=== PATIENT | female | born 1970 | race Caucasian/White ===

== ENCOUNTER → 2016-07-28 | Outpatient (CLI) | payer OTHER ==
[~2016-07-28] MED LIST: AMOXIL500 MG PO; ATIVAN1 MG PO; BENADRYL ALLERG25 M5 PO; CIPRO500 MG PO; CIPROFLOXACIN500 MG PO; CYCLOBENZAPRINE10 MG PO; ELIMITE 5%60 GM T; FLAGYL500 MG PO; FLEXERIL10 MG PO; HYDROCODONE BIT1 T11 PO; KCL PO; KLONOPIN1 M1 PO; KLONOPIN2 MG PO; KWELL TP; LAMICTAL200 MG PO; MACROBID100 M1 PO; MEDROL DOSEPAK4 MG PO; MOTRIN800 MG PO; NAPROSYN500 MG PO; PREDNISONE10 MG PO; PREDNISONE20 MG PO; PREDNISONE50 MG PO; ROBITUSSIN AC 110 ML PO; TORADOL10 MG PO; TRAMADOL HCL50 MG PO; TYLENOL W/CODEI1 TA2 PO; VICODIN 5/500 505 MG PO; VICODIN 500 MG-1 TAB PO; VICODIN ES 7501 TAB PO; VISTARIL50 MG PO; XANAX0.25 MG PO; XANAX1 MG PO; XANAX2 M1 PO; ZITHROMAX Z PA250 MG PO; ZOFRAN ODT4 MG SL
== END | disposition home or self-care (01) ==
LOC: RESCLI 01:59
DX: M99.06 Segmental and somatic dysfunction of lower extremity (principal); M99.01 Segmental and somatic dysfunction of cervical region; M54.5 Low back pain; M79.1 Myalgia; M25.551 Pain in right hip; Z88.0 Allergy status to penicillin

== ENCOUNTER → 2016-08-06 | Outpatient (CLI) | payer OTHER | END | disposition home or self-care (01) | LOC: MRI 08-05 08:00 | DX: M54.42 Lumbago with sciatica, left side (principal) ==

== ENCOUNTER 2016-09-29 14:19 | Emergency (ER) | payer OTHER ==
[~2016-09-29] VITALS: Wt 59.0 kg
[2016-09-29 14:29] VITALS: BP 115/71
[2016-09-29] MEDS ORDERED: MEDROL DOSEPAK4 MG PO (15:57)
[2016-09-29] MEDS ORDERED: TYLENOL WITH CO1 TA1 PO (15:57)
[2016-09-29] MEDS ORDERED: CYCLOBENZAPRINE5 M3 PO (15:57)
== END 2016-09-29 16:03 | disposition home or self-care (01) ==
LOC: ED 14:19
DX: M54.16 Radiculopathy, lumbar region (principal); F17.200 Nicotine dependence, unspecified, uncomplicated

== ENCOUNTER → 2016-10-15 | Outpatient (CLI) | payer OTHER ==
[~2016-10-15] MED LIST changes: +CYCLOBENZAPRINE5 M3 PO; +TYLENOL WITH CO1 TA1 PO
== END | disposition home or self-care (01) ==
LOC: RESCLI 02:37
DX: M54.42 Lumbago with sciatica, left side (principal); R07.2 Precordial pain; F41.9 Anxiety disorder, unspecified; M79.7 Fibromyalgia; E78.1 Pure hyperglyceridemia; K21.9 Gastro-esophageal reflux disease without esophagitis; Z72.0 Tobacco use

== ENCOUNTER 2017-08-15 12:54 | Emergency (ER) | payer OTHER ==
[2017-08-15 13:03] VITALS: BP 122/83
== END 2017-08-15 14:35 | disposition home or self-care (01) ==
LOC: ED 12:54
DX: S93.601A Unspecified sprain of right foot, initial encounter (principal); G89.29 Other chronic pain; F17.210 Nicotine dependence, cigarettes, uncomplicated; Z90.49 Acquired absence of other specified parts of digestive tract; Z98.51 Tubal ligation status; X50.1XXA Overexertion from prolonged static or awkward postures, initial encounter; Y93.89 Activity, other specified; Y92.89 Other specified places as the place of occurrence of the external cause; Y99.9 Unspecified external cause status

== ENCOUNTER 2017-08-22 18:05 | Emergency (ER) | payer OTHER ==
[~2017-08-22] VITALS: Ht 142.2 cm; Wt 63.5 kg
[2017-08-22 18:08] VITALS: BP 109/63
[2017-08-22] MEDS ORDERED: NAPROSYN500 MG PO (19:30)
== END 2017-08-22 19:31 | disposition home or self-care (01) ==
LOC: ED 18:05
DX: G89.29 Other chronic pain (principal); M25.552 Pain in left hip; M79.7 Fibromyalgia; Z90.49 Acquired absence of other specified parts of digestive tract; Z98.51 Tubal ligation status

== ENCOUNTER 2017-09-19 15:19 | Emergency (ER) | payer OTHER ==
[~2017-09-19] VITALS: Ht 152.4 cm; Wt 68.0 kg
[2017-09-19 15:20] VITALS: BP 163/76
[2017-09-19] MEDS ORDERED: LAMICTAL200 MG PO (15:28)
[2017-09-19] MEDS ORDERED: LEXAPRO20 MG PO (15:28)
[2017-09-19] MEDS ORDERED: NEURONTIN600 MG PO (15:29)
[2017-09-19] MEDS ORDERED: SEROQUEL100 MG PO (15:29)
[2017-09-19 15:43] LABS: BASO # 0.1 10*3/uL (0.0-0.1); BASO % 0.4 % (0.0-1.0); EOS % 0.1 % (1.0-4.0); HEMATOCRIT 40.9 % (37.0-47.0); HEMOGLOBIN 14.1 g/dl (12.0-16.0); LYMPH # 2.9 10*3/uL (1.3-4.4); LYMPH % 22.7 % (27.0-41.0); MEAN CELL VOLUME 85.6 fl (81.0-99.0); MEAN CORPUSCULAR HGB 29.5 pg (27.0-31.0); MEAN CORPUSCULAR HGB CONC 34.5 g/dl (33.0-37.0); MEAN PLATELET VOLUME 8.5 fl (9.6-12.3); MONO # 0.8 10*3/uL (0.1-1.0); MONO % 6.1 % (3.0-9.0); NEUT # 8.9 10*3/uL (2.3-7.9); NEUT % 70.4 % (47.0-73.0); PLATELET COUNT AUTOMATED 393 10*3/uL (130-400); RED BLOOD COUNT 4.78 10*6/uL (4.10-5.10); WHITE BLOOD COUNT 12.6 10*3/uL (4.8-10.8)
[2017-09-19 15:57] LABS: ALBUMIN 4.2 gm/dl (3.1-4.5); ALKALINE PHOSPHATASE 96 U/L (45-117); BUN 14 mg/dl (7-24); CHLORIDE 104 mmol/L (98-107); CREATININE 1.03 mg/dL (0.55-1.02); POTASSIUM 3.6 mmol/L (3.5-5.1); SGOT/AST 20 IU/L (3-35); SGPT/ALT 18 U/L (12-78); SODIUM 136 mmol/L (136-145); TOTAL PROTEIN 8.1 gm/dL (6.4-8.2)
[2017-09-19 16:00] LABS: ACETAMINOPHEN (TYLENOL) < 2.0 ug/ml (10-30); ETHYL ALCOHOL < 3.0 mg/dl (<3)
[2017-09-19 16:40] LABS: BILIRUBIN NEGATIVE (NEGATIVE); BLOOD 1+ (NEGATIVE); CLARITY SL CLOUDY (CLEAR); COLOR YELLOW (YELLOW); GLUCOSE NEGATIVE (NEGATIVE); KETONE NEGATIVE (NEGATIVE); LEUKO ESTERASE NEGATIVE (NEGATIVE); NITRITE NEGATIVE (NEGATIVE); PH 6.5 (5.0-9.0); UROBILINOGEN 0.2 E.U./dl (0.2-1.0)
[2017-09-19 16:48] LABS: BACTERIA 1+; MUCOUS 3+
[2017-09-19 16:50] LABS: URINE AMPHETAMINES < 1000 (1000ng/ml); URINE BARBITURATES < 200 (200ng/ml); URINE BENZODIAZEPINES < 200 (200ng/ml); URINE CANNABINOIDS (THC) < 50 (50ng/ml); URINE COCAINE < 300 (300ng/ml); URINE METHADONE < 300 (300ng/ml); URINE OPIATES < 300 (300ng/ml)
[2017-09-19 16:53] LABS: URINE PHENCYCLIDINE < 25 (25ng/ml)
== END 2017-09-19 17:29 ==
LOC: ED 15:19
PROVIDERS: Nurse Practitioner Family
DX: F25.0 Schizoaffective disorder, bipolar type (principal); Z79.899 Other long term (current) drug therapy

== ENCOUNTER 2018-11-03 18:53 | Emergency (ER) | payer OTHER ==
[~2018-11-03] VITALS: Ht 157.4 cm; Wt 59.0 kg
[~2018-11-03 18:53] MED LIST changes: +LEXAPRO20 MG PO; +NEURONTIN600 MG PO; +SEROQUEL100 MG PO
[2018-11-03 18:55] VITALS: BP 117/82
[2018-11-03] MEDS ORDERED: CLONAZEPAM0.5 M2 PO (18:56)
[2018-11-03] MEDS ORDERED: FLUOXETINE HYDR20 M1 PO (18:57)
[2018-11-03] MEDS ORDERED: PREDNISONE20 M1 PO (18:58)
== END 2018-11-03 19:07 | disposition home or self-care (01) ==
LOC: ED 18:53
DX: L25.9 Unspecified contact dermatitis, unspecified cause (principal); F17.200 Nicotine dependence, unspecified, uncomplicated; Z79.899 Other long term (current) drug therapy; Z90.49 Acquired absence of other specified parts of digestive tract

== ENCOUNTER 2018-12-20 18:50 | Inpatient (IN) | payer OTHER ==
[~2018-12-20] VITALS: Ht 152.4 cm; Wt 70.8 kg
--- NOTE | ~2018-12-20 | EKG ---
[place], [place] ELECTROCARDIOGRAM REPORT NAME: NIRMAL STEEN UNIT #: [id number] ROOM: 515 DOCTOR: ROSY DRAFT REPORT BIRTHDATE: [birth year] [facility] Test Date: 2018-12-21 Test Time: 06:26:07 Pat Name: NIRMAL STEEN Department: Room: [facility] Gender: F Calciner Feeder: Alejandra Jimenez : 1970 Requested By: NIRMAL CISSE Order Number: [id number] Reading MD: Raphael Klein Measurements Intervals [place] Rate: 59 P: 16 MA: 142 QRS: 21 QRSD: 82 T: 0 QT: 463 QTc: 459 Interpretive Statements Sinus rhythm Borderline T abnormalities, inferior leads Baseline wander in lead(s) V1 Electronically Signed On 12-22-2018 8:15:55 PDT by Raphael Klein CM:EKGRPT:ELECTROCARDIOGRAM REPORT [id number] NIRMAL BARAHONA DRAFT REPORT NIRMAL CISSE DO
--- NOTE | ~2018-12-20 | EKG ---
[place], [place] ELECTROCARDIOGRAM REPORT NAME: NIRMAL STEEN UNIT #: [id number] ROOM: 515 DOCTOR: ROSY DRAFT REPORT BIRTHDATE: [birth year] [facility] Test Date: 2018-12-21 Test Time: 03:24:33 Pat Name: NIRMAL STEEN Department: Room: [facility] Gender: F Configuration Specialist: Cheng Lombardi : 1970 Requested By: NIRMAL CISSE Order Number: [id number] Reading MD: Raphael Klein Measurements Intervals [place] Rate: 65 P: 30 CT: 141 QRS: 28 QRSD: 82 T: 6 QT: 434 QTc: 452 Interpretive Statements Sinus rhythm Baseline wander in lead(s) V1 Electronically Signed On 12-22-2018 8:15:05 PDT by Raphael Klein CM:EKGRPT:ELECTROCARDIOGRAM REPORT [id number] NIRMAL BARAHONA DRAFT REPORT NIRMAL CISSE DO
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
--- NOTE | ~2018-12-20 | EKG ---
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
[~2018-12-20 18:50] MED LIST changes: +CLONAZEPAM0.5 M2 PO; +FLUOXETINE HYDR20 M1 PO; +PREDNISONE20 M1 PO
[2018-12-20 18:54] VITALS: BP 136/74
[2018-12-20 20:20] LABS: BASO # 0.1 10*3/uL (0.0-0.1); BASO % 0.6 % (0.0-1.0); EOS # 0.3 10*3/uL (0.0-0.4); EOS % 3.5 % (1.0-4.0); HEMATOCRIT 38.3 % (37.0-47.0); HEMOGLOBIN 12.7 g/dl (12.0-16.0); LYMPH # 3.9 10*3/uL (1.3-4.4); LYMPH % 41.8 % (27.0-41.0); MEAN CORPUSCULAR HGB 30.8 pg (27.0-31.0); MEAN CORPUSCULAR HGB CONC 33.2 g/dl (33.0-37.0); MEAN PLATELET VOLUME 8.3 fl (9.6-12.3); MONO # 0.4 10*3/uL (0.1-1.0); MONO % 4.6 % (3.0-9.0); NEUT # 4.6 10*3/uL (2.3-7.9); NEUT % 49.3 % (47.0-73.0); PLATELET COUNT AUTOMATED 313 10*3/uL (130-400); RED BLOOD COUNT 4.12 10*6/uL (4.10-5.10); RED CELL DISTRI WIDTH 14.6 % (0-14.5); WHITE BLOOD COUNT 9.3 10*3/uL (4.8-10.8)
[2018-12-20 20:36] LABS: ALBUMIN 3.4 gm/dl (3.1-4.5); ALKALINE PHOSPHATASE 106 U/L (45-117); BUN 12 mg/dl (7-24); CHLORIDE 109 mmol/L (98-107); CREATININE 0.76 mg/dL (0.55-1.02); POTASSIUM 3.5 mmol/L (3.5-5.1); SGOT/AST 15 IU/L (3-35); SGPT/ALT 18 U/L (12-78); SODIUM 142 mmol/L (136-145); TOTAL PROTEIN 7.2 gm/dL (6.4-8.2)
[2018-12-20 20:51] VITALS: BP 107/73
--- NOTE | 2018-12-20 20:51 | NUR ---
PT STATES SHE IS UNABLE TO VOID PER PATIENT. FEDERICO BETANCOURT RN.
--- NOTE | 2018-12-20 22:53 | NUR ---
PT STATES SHE STILL DOES NOT HAVE TO VOID. FEDERICO BETANCOURT RN.
[2018-12-20 22:54] VITALS: BP 100/50
[2018-12-20 23:18] LABS: BILIRUBIN NEGATIVE (NEGATIVE); BLOOD NEGATIVE (NEGATIVE); CLARITY CLEAR (CLEAR); COLOR YELLOW (YELLOW); GLUCOSE NEGATIVE (NEGATIVE); KETONE NEGATIVE (NEGATIVE); LEUKO ESTERASE NEGATIVE (NEGATIVE); NITRITE NEGATIVE (NEGATIVE); UROBILINOGEN 0.2 E.U./dl (0.2-1.0)
[2018-12-20 23:24] LABS: BACTERIA 2+; RBC 0-2 rbc/hpf (0-2)
[2018-12-21] VITALS (7 sets, daily range): BP systolic 98–132; BP diastolic 59–81
[2018-12-21 03:15] LABS: INTERNATIONAL NORM RATIO 0.9 (2.0-3.5)
--- NOTE | 2018-12-21 04:15 | NUR ---
Time: 414 A 48 year old FEMALE admitted to 5E under services of ORACIO MAGALLANES DO. Pt. arrived via wheel chair from ER. Chief complaint: CHEST PAIN. ARLEN FUENTES
--- NOTE | 2018-12-21 04:48 | NUR ---
CALLED DR. DARRIN DEL CID PT MED WAS VERIFIED. PER PT ONLY TAKE TWO MEDICATION. DENIES TAKING LAMICTAL. WE WILL CALL PHARMACY IN AM.
[2018-12-21] MEDS ORDERED: LAMICTAL200 MG PO (05:14)
--- NOTE | 2018-12-21 05:17 | NUR ---
CALLED DR. CLIFFORD AWARE PT STATES SHE IS TAKING LAMICTAL ALSO.
--- NOTE | 2018-12-21 05:43 | NUR ---
PT ANXIOUS LYING IN BEDF. RESP-EASY AND REGULAR. MEDICATED WITH XANAX PO PER PRN ORDER SEE EMAR. CALL LIGHT IN REACH.
[2018-12-21 06:02] LABS: URINE AMPHETAMINES < 1000 (1000ng/ml); URINE BARBITURATES < 200 (200ng/ml); URINE BENZODIAZEPINES > 200 (200ng/ml); URINE CANNABINOIDS (THC) < 50 (50ng/ml); URINE COCAINE > 300 (300ng/ml); URINE METHADONE < 300 (300ng/ml); URINE OPIATES < 300 (300ng/ml)
[2018-12-21 06:08] LABS: URINE PHENCYCLIDINE < 25 (25ng/ml)
[2018-12-21 06:10] LABS: BASO % 0.5 % (0.0-1.0); EOS # 0.2 10*3/uL (0.0-0.4); EOS % 2.8 % (1.0-4.0); HEMATOCRIT 36.1 % (37.0-47.0); HEMOGLOBIN 11.8 g/dl (12.0-16.0); LYMPH # 3.4 10*3/uL (1.3-4.4); LYMPH % 42.2 % (27.0-41.0); MEAN CORPUSCULAR HGB 30.4 pg (27.0-31.0); MEAN CORPUSCULAR HGB CONC 32.7 g/dl (33.0-37.0); MEAN PLATELET VOLUME 8.6 fl (9.6-12.3); MONO # 0.5 10*3/uL (0.1-1.0); NEUT # 3.8 10*3/uL (2.3-7.9); NEUT % 48.2 % (47.0-73.0); PLATELET COUNT AUTOMATED 270 10*3/uL (130-400); RED BLOOD COUNT 3.88 10*6/uL (4.10-5.10); RED CELL DISTRI WIDTH 14.5 % (0-14.5)
[2018-12-21 06:28] LABS: BUN 13 mg/dl (7-24); CHLORIDE 108 mmol/L (98-107); CHOLESTEROL 187 mg/dL (<200); CREATININE 0.78 mg/dL (0.55-1.02); PHOSPHOROUS 3.5 mg/dL (2.5-4.9); POTASSIUM 3.5 mmol/L (3.5-5.1); SODIUM 140 mmol/L (136-145); TRIGLYCERIDES 320 mg/dl (<150); VLDL CHOLESTEROL 64 mg/dL (6-40)
[2018-12-21 06:38] LABS: HDL CHOLESTEROL 43 mg/dl (40-60); LDL CHOLESTEROL 80 mg/dL (9-159)
--- NOTE | 2018-12-21 07:13 | NUR ---
CALLED [facility] FOR CONSULT FOR DR. JOHNSON. THEY WILL NOTIFY HIM.
[2018-12-21 08:41] LABS: VITAMIN D, 25-HYDROXY 15.4 ng/mL (30-100)
[2018-12-22] VITALS: BP 107/62
[2018-12-22 08:00] VITALS: BP 102/56
[2018-12-22] MEDS ORDERED: LAMICTAL200 MG PO (08:21)
[2018-12-22] MEDS ORDERED: ZOFRAN4 MG PO (08:21)
[2018-12-22] MEDS ORDERED: PHARMASSURE V500 MCG PO (08:22)
[2018-12-22] MEDS ORDERED: CALCIUM 600 +1 EA11 PO (08:22)
--- NOTE | 2018-12-22 09:15 | NUR ---
PATIENT DISCHARGED TO HOME WITH BELONGINGS.
--- NOTE | 2018-12-22 13:17 | NUR ---
PT LEFT BEFORE BEING SEEN BY CASE MANAGEMENT.
== END 2018-12-22 09:15 | disposition home or self-care (01) | DRG 313 ==
LOC: ED 18:50 → EDHOLD 12-21 03:25 → 5E 12-21 03:25
PROVIDERS: Emergency Medicine; Student in an Organized Health Care Education/Training Program; ADMIT Internal Medicine
DX: R07.89 Other chest pain (principal); F33.9 Major depressive disorder, recurrent, unspecified; R56.9 Unspecified convulsions; F10.920 Alcohol use, unspecified with intoxication, uncomplicated; E87.8 Other disorders of electrolyte and fluid balance, not elsewhere classified; D72.820 Lymphocytosis (symptomatic); M54.9 Dorsalgia, unspecified; F41.1 Generalized anxiety disorder; M79.10 Myalgia, unspecified site; M54.10 Radiculopathy, site unspecified; M25.552 Pain in left hip; I10 Essential (primary) hypertension; F40.11 Social phobia, generalized; E53.8 Deficiency of other specified B group vitamins; M54.32 Sciatica, left side; F25.0 Schizoaffective disorder, bipolar type; E55.9 Vitamin D deficiency, unspecified; F12.90 Cannabis use, unspecified, uncomplicated; G89.29 Other chronic pain; E78.00 Pure hypercholesterolemia, unspecified; F17.210 Nicotine dependence, cigarettes, uncomplicated; Z71.6 Tobacco abuse counseling; Z59.0 Homelessness; Z90.49 Acquired absence of other specified parts of digestive tract; Z98.51 Tubal ligation status; Z82.49 Family history of ischemic heart disease and other diseases of the circulatory system; Z82.0 Family history of epilepsy and other diseases of the nervous system; Z81.3 Family history of other psychoactive substance abuse and dependence; Z91.14 Patient's other noncompliance with medication regimen

== ENCOUNTER 2019-01-25 18:17 | Emergency (ER) | payer OTHER ==
[~2019-01-25] VITALS: Ht 144.7 cm; Wt 67.1 kg
[~2019-01-25 18:17] MED LIST changes: +CALCIUM 600 +1 EA11 PO; +PHARMASSURE V500 MCG PO; +ZOFRAN4 MG PO
[2019-01-25 18:18] VITALS: BP 110/68
[2019-01-25 19:07] LABS: BILIRUBIN 1+ (NEGATIVE); BLOOD NEGATIVE (NEGATIVE); CLARITY SL CLOUDY (CLEAR); COLOR RED (YELLOW); GLUCOSE 1+ (NEGATIVE); KETONE TRACE (NEGATIVE); LEUKO ESTERASE 2+ (NEGATIVE); NITRITE POSITIVE (NEGATIVE); SPECIFIC GRAVITY 1.015 (1.005-1.030); UROBILINOGEN >= 8.0 E.U./dl (0.2-1.0)
[2019-01-25 19:42] LABS: BACTERIA 2+; WBC 16-20 wbc/hpf (0-5)
[2019-01-25] MEDS ORDERED: PYRIDIUM200 M1 PO (19:56)
[2019-01-25] MEDS ORDERED: SEPTDS PO (19:56)
== END 2019-01-25 19:57 | disposition home or self-care (01) ==
LOC: ED 18:17
PROVIDERS: Physician Assistant
DX: N39.0 Urinary tract infection, site not specified (principal); B37.3 Candidiasis of vulva and vagina; F17.200 Nicotine dependence, unspecified, uncomplicated; Z79.899 Other long term (current) drug therapy; Z90.49 Acquired absence of other specified parts of digestive tract; Z98.51 Tubal ligation status

== ENCOUNTER 2019-02-07 18:02 | Emergency (ER) | payer OTHER ==
[~2019-02-07] VITALS: Ht 144.7 cm; Wt 67.1 kg
[~2019-02-07 18:02] MED LIST changes: +PYRIDIUM200 M1 PO; +SEPTDS PO
[2019-02-07 18:04] VITALS: BP 115/69
== END 2019-02-07 20:30 | disposition home or self-care (01) ==
LOC: ED 18:02
DX: M25.551 Pain in right hip (principal); Z53.21 Procedure and treatment not carried out due to patient leaving prior to being seen by health care provider

== ENCOUNTER 2019-03-13 22:32 | Emergency (ER) | payer OTHER ==
[~2019-03-13] VITALS: Ht 157.4 cm; Wt 67.6 kg
[2019-03-13 22:34] VITALS: BP 127/80
[2019-03-13] MEDS ORDERED: CLONAZEPAM0.5 M2 PO (22:43)
[2019-03-13 23:23] LABS: BILIRUBIN NEGATIVE (NEGATIVE); BLOOD TRACE-INTACT (NEGATIVE); CLARITY CLEAR (CLEAR); COLOR YELLOW (YELLOW); GLUCOSE NEGATIVE (NEGATIVE); KETONE NEGATIVE (NEGATIVE); LEUKO ESTERASE NEGATIVE (NEGATIVE); NITRITE NEGATIVE (NEGATIVE); PH 7.5 (5.0-9.0); UROBILINOGEN 0.2 E.U./dl (0.2-1.0)
[2019-03-13 23:30] LABS: BACTERIA TRACE; EPITHELIAL CELLS 0-2
== END 2019-03-14 01:48 | disposition home or self-care (01) ==
LOC: ED 22:32
PROVIDERS: Emergency Medicine
DX: M13.852 Other specified arthritis, left hip (principal); M13.851 Other specified arthritis, right hip; M47.896 Other spondylosis, lumbar region; G40.909 Epilepsy, unspecified, not intractable, without status epilepticus; E78.00 Pure hypercholesterolemia, unspecified; I10 Essential (primary) hypertension; F17.200 Nicotine dependence, unspecified, uncomplicated

== ENCOUNTER 2019-03-25 16:48 | Emergency (ER) | payer OTHER ==
[~2019-03-25] VITALS: Ht 162.5 cm; Wt 63.5 kg
[2019-03-25 16:49] VITALS: BP 159/95
[2019-03-25] MEDS ORDERED: PROVENTIL HFA6.7 GM INH (19:12)
[2019-03-25] MEDS ORDERED: TESSALON PERLE100 M1 PO (19:12)
== END 2019-03-25 19:30 | disposition home or self-care (01) ==
LOC: ED 16:48
DX: J20.9 Acute bronchitis, unspecified (principal); J04.0 Acute laryngitis; G89.29 Other chronic pain; F17.200 Nicotine dependence, unspecified, uncomplicated; Z79.899 Other long term (current) drug therapy; Z90.49 Acquired absence of other specified parts of digestive tract

== ENCOUNTER → 2019-04-22 | Outpatient (CLI) | payer OTHER ==
[~2019-04-22] MED LIST changes: +PROVENTIL HFA6.7 GM INH; +TESSALON PERLE100 M1 PO
[2019-04-22 14:33] LABS: VITAMIN D, 25-HYDROXY 10.3 ng/mL (30-100)
== END | disposition home or self-care (01) ==
LOC: LAB 13:15 → RAD 13:15
PROVIDERS: Nurse Practitioner Family
DX: E83.51 Hypocalcemia (principal); F41.9 Anxiety disorder, unspecified; E78.1 Pure hyperglyceridemia; G40.909 Epilepsy, unspecified, not intractable, without status epilepticus; F17.210 Nicotine dependence, cigarettes, uncomplicated

== ENCOUNTER → 2019-05-02 | Outpatient (CLI) | payer OTHER | END | disposition home or self-care (01) | LOC: US 06:30 | DX: Z12.4 Encounter for screening for malignant neoplasm of cervix (principal); G40.909 Epilepsy, unspecified, not intractable, without status epilepticus; K13.0 Diseases of lips; K21.9 Gastro-esophageal reflux disease without esophagitis; F17.210 Nicotine dependence, cigarettes, uncomplicated; R68.81 Early satiety; R63.4 Abnormal weight loss ==

== ENCOUNTER → 2019-05-12 | Outpatient (CLI) | payer OTHER | END | disposition home or self-care (01) | LOC: CT 05-06 14:00 | DX: K57.90 Diverticulosis of intestine, part unspecified, without perforation or abscess without bleeding (principal); K76.0 Fatty (change of) liver, not elsewhere classified; N85.2 Hypertrophy of uterus; R63.4 Abnormal weight loss; F17.200 Nicotine dependence, unspecified, uncomplicated ==

== ENCOUNTER → 2019-05-23 | Outpatient (CLI) | payer OTHER | END | disposition home or self-care (01) | LOC: MRI 13:43 | DX: N83.02 Follicular cyst of left ovary (principal); N83.01 Follicular cyst of right ovary; N85.9 Noninflammatory disorder of uterus, unspecified; N85.2 Hypertrophy of uterus; M47.816 Spondylosis without myelopathy or radiculopathy, lumbar region; F41.9 Anxiety disorder, unspecified; F10.11 Alcohol abuse, in remission; R93.5 Abnormal findings on diagnostic imaging of other abdominal regions, including retroperitoneum; R63.4 Abnormal weight loss ==

== ENCOUNTER 2019-07-01 17:50 | Emergency (ER) | payer OTHER ==
[~2019-07-01] VITALS: Ht 144.7 cm; Wt 81.6 kg
[2019-07-01 18:33] LABS: BILIRUBIN NEGATIVE (NEGATIVE); BLOOD TRACE-INTACT (NEGATIVE); CLARITY CLOUDY (CLEAR); COLOR YELLOW (YELLOW); GLUCOSE NEGATIVE (NEGATIVE); KETONE TRACE (NEGATIVE); LEUKO ESTERASE 1+ (NEGATIVE); NITRITE POSITIVE (NEGATIVE); PH 7.5 (5.0-9.0); SPECIFIC GRAVITY 1.005 (1.005-1.030); UROBILINOGEN 0.2 E.U./dl (0.2-1.0)
[2019-07-01 18:38] LABS: BACTERIA 4+; RBC 0-2 rbc/hpf (0-2); WBC 31-40 wbc/hpf (0-5)
[2019-07-01 18:50] VITALS: BP 119/68
[2019-07-01 18:54] LABS: BASO # 0.1 10*3/uL (0.0-0.1); EOS # 0.1 10*3/uL (0.0-0.4); EOS % 1.3 % (1.0-4.0); HEMATOCRIT 40.2 % (37.0-47.0); HEMOGLOBIN 13.1 g/dl (12.0-16.0); LYMPH # 2.8 10*3/uL (1.3-4.4); LYMPH % 35.7 % (27.0-41.0); MEAN CELL VOLUME 92.2 fl (81.0-99.0); MEAN CORPUSCULAR HGB CONC 32.6 g/dl (33.0-37.0); MEAN PLATELET VOLUME 8.8 fl (9.6-12.3); MONO # 0.6 10*3/uL (0.1-1.0); MONO % 7.4 % (3.0-9.0); NEUT # 4.3 10*3/uL (2.3-7.9); NEUT % 54.2 % (47.0-73.0); PLATELET COUNT AUTOMATED 259 10*3/uL (130-400); RED BLOOD COUNT 4.36 10*6/uL (4.10-5.10); RED CELL DISTRI WIDTH 13.2 % (0-14.5)
[2019-07-01 19:09] LABS: ALBUMIN 3.2 gm/dl (3.1-4.5); ALKALINE PHOSPHATASE 81 U/L (45-117); BUN 10 mg/dl (7-24); CHLORIDE 109 mmol/L (98-107); CREATININE 1.06 mg/dL (0.55-1.02); LIPASE 77 U/L (73-393); POTASSIUM 3.2 mmol/L (3.5-5.1); SGOT/AST 16 IU/L (3-35); SGPT/ALT 18 U/L (12-78); SODIUM 141 mmol/L (136-145); TOTAL PROTEIN 7.1 gm/dL (6.4-8.2)
[2019-07-01] MEDS ORDERED: MACROBID100 M1 PO (20:45)
[2019-07-01] MEDS ORDERED: Motrin,Rufen800 MG PO (20:45)
== END 2019-07-01 21:02 | disposition home or self-care (01) ==
LOC: ED 17:50
PROVIDERS: Emergency Medicine
DX: N39.0 Urinary tract infection, site not specified (principal); D25.9 Leiomyoma of uterus, unspecified; F41.9 Anxiety disorder, unspecified; R56.9 Unspecified convulsions; F32.9 Major depressive disorder, single episode, unspecified; F17.200 Nicotine dependence, unspecified, uncomplicated; Z79.899 Other long term (current) drug therapy; Z90.49 Acquired absence of other specified parts of digestive tract

== ENCOUNTER 2019-11-11 17:35 | Inpatient (IN) | payer OTHER ==
[~2019-11-11] VITALS: Ht 157.5 cm; Wt 75.5 kg
[~2019-11-11 17:35] MED LIST changes: +Motrin,Rufen800 MG PO
[2019-11-11 18:15] LABS: BASO # 0.1 10*3/uL (0.0-0.1); EOS # 0.1 10*3/uL (0.0-0.4); EOS % 1.8 % (1.0-4.0); HEMATOCRIT 44.9 % (37.0-47.0); LYMPH # 2.9 10*3/uL (1.3-4.4); MEAN CELL VOLUME 89.4 fl (81.0-99.0); MEAN CORPUSCULAR HGB 29.3 pg (27.0-31.0); MEAN CORPUSCULAR HGB CONC 32.7 g/dl (33.0-37.0); MEAN PLATELET VOLUME 8.3 fl (9.6-12.3); MONO # 0.3 10*3/uL (0.1-1.0); NEUT # 3.4 10*3/uL (2.3-7.9); NEUT % 49.8 % (47.0-73.0); PLATELET COUNT AUTOMATED 303 10*3/uL (130-400); RED BLOOD COUNT 5.02 10*6/uL (4.10-5.10); RED CELL DISTRI WIDTH 14.8 % (0-14.5); WHITE BLOOD COUNT 6.8 10*3/uL (4.8-10.8)
[2019-11-11 18:32] LABS: ALBUMIN 3.5 gm/dl (3.1-4.5); ALKALINE PHOSPHATASE 124 U/L (45-117); BUN 8 mg/dl (7-24); CHLORIDE 109 mmol/L (98-107); CREATININE 0.77 mg/dL (0.55-1.02); POTASSIUM 3.4 mmol/L (3.5-5.1); SGOT/AST 35 IU/L (3-35); SGPT/ALT 29 U/L (12-78); SODIUM 144 mmol/L (136-145)
[2019-11-11 18:35] LABS: TROPONIN I < 0.015 ng/ml (<0.045)
[2019-11-11 18:38] LABS: THYROID STIM HORMONE (HS) 0.167 uIU/ml (0.358-4.75)
[2019-11-11 19:00] VITALS: BP 130/68
[2019-11-11 19:03] LABS: BILIRUBIN NEGATIVE (NEGATIVE); BLOOD NEGATIVE (NEGATIVE); CLARITY CLEAR (CLEAR); COLOR YELLOW (YELLOW); GLUCOSE NEGATIVE (NEGATIVE); KETONE NEGATIVE (NEGATIVE); NITRITE POSITIVE (NEGATIVE); PH 6.5 (5.0-9.0); SPECIFIC GRAVITY 1.005 (1.005-1.030); UROBILINOGEN 0.2 E.U./dl (0.2-1.0)
[2019-11-11 19:04] LABS: BACTERIA 4+; LEUKO ESTERASE NEGATIVE (NEGATIVE); RBC 0-2 rbc/hpf (0-2); URINE AMPHETAMINES < 1000 (1000ng/ml); URINE BARBITURATES < 200 (200ng/ml); URINE BENZODIAZEPINES > 200 (200ng/ml); URINE CANNABINOIDS (THC) < 50 (50ng/ml); URINE COCAINE < 300 (300ng/ml); URINE METHADONE < 300 (300ng/ml); URINE OPIATES < 300 (300ng/ml)
[2019-11-11 19:06] LABS: URINE PHENCYCLIDINE < 25 (25ng/ml)
[2019-11-11 20:26] VITALS: BP 132/78
[2019-11-11 21:10] VITALS: BP 138/65
[2019-11-11 21:47] VITALS: BP 132/81
[2019-11-12] VITALS: BP 122/88
[2019-11-12] MEDS ORDERED: DULOXETINE HCL20 MG PO (03:12)
[2019-11-12 04:02] VITALS: BP 109/72
[2019-11-12 06:08] LABS: ALBUMIN 2.9 gm/dl (3.1-4.5); BUN 10 mg/dl (7-24); CHLORIDE 106 mmol/L (98-107); CREATININE 0.75 mg/dL (0.55-1.02); POTASSIUM 3.2 mmol/L (3.5-5.1); SGOT/AST 28 IU/L (3-35); SGPT/ALT 25 U/L (12-78); SODIUM 141 mmol/L (136-145); TOTAL PROTEIN 6.8 gm/dL (6.4-8.2)
[2019-11-12 06:09] LABS: ALKALINE PHOSPHATASE 104 U/L (45-117); FREE T4 0.78 ng/dl (0.76-1.46)
[2019-11-12 06:11] LABS: BASO % 0.6 % (0.0-1.0); EOS # 0.1 10*3/uL (0.0-0.4); EOS % 2.2 % (1.0-4.0); HEMATOCRIT 39.6 % (37.0-47.0); LYMPH % 47.8 % (27.0-41.0); MEAN CELL VOLUME 90.8 fl (81.0-99.0); MEAN CORPUSCULAR HGB 28.9 pg (27.0-31.0); MEAN CORPUSCULAR HGB CONC 31.8 g/dl (33.0-37.0); MEAN PLATELET VOLUME 8.6 fl (9.6-12.3); MONO # 0.4 10*3/uL (0.1-1.0); MONO % 6.7 % (3.0-9.0); NEUT # 2.7 10*3/uL (2.3-7.9); NEUT % 42.5 % (47.0-73.0); PLATELET COUNT AUTOMATED 265 10*3/uL (130-400); RED BLOOD COUNT 4.36 10*6/uL (4.10-5.10); RED CELL DISTRI WIDTH 14.9 % (0-14.5); WHITE BLOOD COUNT 6.3 10*3/uL (4.8-10.8)
[2019-11-12 08:00] VITALS: BP 112/70
[2019-11-12 12:00] VITALS: BP 141/79
[2019-11-12 16:00] VITALS: BP 136/70
[2019-11-12 20:00] VITALS: BP 107/77
[2019-11-13] VITALS: BP 115/82
[2019-11-13 04:00] VITALS: BP 127/95
== END 2019-11-13 05:50 | disposition left against medical advice (07) | DRG 770 ==
LOC: ED 17:35 → EDHOLD 19:52 → ICCU 19:52
PROVIDERS: Internal Medicine; Student in an Organized Health Care Education/Training Program; ADMIT Emergency Medicine
DX: F10.229 Alcohol dependence with intoxication, unspecified (principal); F41.9 Anxiety disorder, unspecified; E87.6 Hypokalemia; F12.90 Cannabis use, unspecified, uncomplicated; F32.9 Major depressive disorder, single episode, unspecified; E87.8 Other disorders of electrolyte and fluid balance, not elsewhere classified; R73.9 Hyperglycemia, unspecified; Z53.29 Procedure and treatment not carried out because of patient's decision for other reasons; R74.8 Abnormal levels of other serum enzymes; F25.0 Schizoaffective disorder, bipolar type; G40.909 Epilepsy, unspecified, not intractable, without status epilepticus; F17.210 Nicotine dependence, cigarettes, uncomplicated; E55.9 Vitamin D deficiency, unspecified; Z59.0 Homelessness; Z90.49 Acquired absence of other specified parts of digestive tract; Z98.51 Tubal ligation status; Z82.0 Family history of epilepsy and other diseases of the nervous system; Z81.3 Family history of other psychoactive substance abuse and dependence; Z79.899 Other long term (current) drug therapy; Z71.6 Tobacco abuse counseling; Z82.49 Family history of ischemic heart disease and other diseases of the circulatory system; F10.239 Alcohol dependence with withdrawal, unspecified

== ENCOUNTER → 2020-01-12 | Outpatient (CLI) | payer OTHER ==
[~2020-01-12] MED LIST changes: +DULOXETINE HCL20 MG PO
== END | disposition home or self-care (01) ==
LOC: COVID19 01:19
PROVIDERS: ATTEND Nurse Practitioner Family
DX: Z20.828 Contact with and (suspected) exposure to other viral communicable diseases (principal)

== ENCOUNTER 2020-01-17 23:14 | Emergency (ER) | payer OTHER ==
[~2020-01-17] VITALS: Ht 144.7 cm; Wt 68.0 kg
[2020-01-17 23:17] VITALS: BP 125/79
[2020-01-18 01:19] LABS: BILIRUBIN Negative (Negative); BLOOD Negative (Negative); CLARITY Clear (Clear); COLOR Yellow (Yellow); GLUCOSE Negative (Negative); KETONE Negative (Negative); LEUKO ESTERASE Negative (Negative); NITRITE Negative (Negative); SPECIFIC GRAVITY <= 1.005 (1.001-1.030); UROBILINOGEN 0.2 E.U./dl (0.0-1.0)
[2020-01-18 01:35] LABS: RBC 0-2 rbc/hpf (0-2); WBC 0-2 wbc/hpf (0-5)
== END 2020-01-18 02:23 | disposition home or self-care (01) ==
LOC: ED 23:14
PROVIDERS: Emergency Medicine
DX: T74.21XA Adult sexual abuse, confirmed, initial encounter (principal); F41.9 Anxiety disorder, unspecified; F32.9 Major depressive disorder, single episode, unspecified; Z79.899 Other long term (current) drug therapy; Y92.89 Other specified places as the place of occurrence of the external cause

== ENCOUNTER → 2020-02-01 | Outpatient (CLI) | payer OTHER ==
[~2020-02-01] MED LIST changes: +AUGMENTIN 875875 MG PO; +CARAFATE1 G1 PO; +CHLORDIAZEPOXID25 M1 PO; +CYMBALTA20 M1 PO; +DICYCLOMINE HCL10 MG PO; +FAMOTIDINE20 M1 PO; +HYDROXYZINE PAM50 MG PO; +KLONOPIN0.5 MG PO; +PRILOSEC20 M1 PO; +VITAMIN B-121000 MC1 SL
== END | disposition home or self-care (01) ==
LOC: US 01-16 13:00
PROVIDERS: ATTEND Obstetrics & Gynecology
DX: R10.2 Pelvic and perineal pain (principal); R93.89 Abnormal findings on diagnostic imaging of other specified body structures

== ENCOUNTER 2020-02-15 13:14 | Emergency (ER) | payer OTHER ==
[2020-02-15 13:14] VITALS: BP 132/83
[~2020-02-15 13:14] MED LIST changes: -AUGMENTIN 875875 MG PO; -CARAFATE1 G1 PO; -CHLORDIAZEPOXID25 M1 PO; -CYMBALTA20 M1 PO; -DICYCLOMINE HCL10 MG PO; -FAMOTIDINE20 M1 PO; -HYDROXYZINE PAM50 MG PO; -KLONOPIN0.5 MG PO; -PRILOSEC20 M1 PO; -VITAMIN B-121000 MC1 SL
[2020-02-15 14:03] LABS: BASO # 0.1 10*3/uL (0.0-0.1); BASO % 0.9 % (0.0-1.0); EOS # 0.1 10*3/uL (0.0-0.4); EOS % 2.1 % (1.0-4.0); HEMATOCRIT 38.3 % (37.0-47.0); LYMPH # 2.6 10*3/uL (1.3-4.4); LYMPH % 48.9 % (27.0-41.0); MEAN CELL VOLUME 87.2 fl (81.0-99.0); MEAN CORPUSCULAR HGB 28.7 pg (27.0-31.0); MEAN CORPUSCULAR HGB CONC 32.9 g/dl (33.0-37.0); MEAN PLATELET VOLUME 8.1 fl (9.6-12.3); MONO # 0.2 10*3/uL (0.1-1.0); MONO % 4.5 % (3.0-9.0); NEUT # 2.3 10*3/uL (2.3-7.9); NEUT % 43.2 % (47.0-73.0); PLATELET COUNT AUTOMATED 218 10*3/uL (130-400); RED BLOOD COUNT 4.39 10*6/uL (4.10-5.10); RED CELL DISTRI WIDTH 13.4 % (0-14.5); WHITE BLOOD COUNT 5.3 10*3/uL (4.8-10.8)
[2020-02-15 14:19] LABS: ALBUMIN 3.1 gm/dl (3.1-4.5); ALKALINE PHOSPHATASE 115 U/L (45-117); BUN 10 mg/dl (7-24); CHLORIDE 112 mmol/L (98-107); CREATININE 0.66 mg/dL (0.55-1.02); POTASSIUM 3.4 mmol/L (3.5-5.1); SGOT/AST 52 IU/L (3-35); SGPT/ALT 43 U/L (12-78); SODIUM 146 mmol/L (136-145); TOTAL PROTEIN 7.2 gm/dL (6.4-8.2)
[2020-02-15 14:40] LABS: ACT PARTIAL THROMBO TIME 25.6 SECONDS (20.0-32.1)
== END 2020-02-15 18:02 | disposition left against medical advice (07) ==
LOC: ED 13:14
PROVIDERS: Emergency Medicine
DX: R14.0 Abdominal distension (gaseous) (principal); R10.9 Unspecified abdominal pain; Z79.899 Other long term (current) drug therapy; Z53.29 Procedure and treatment not carried out because of patient's decision for other reasons

== ENCOUNTER 2020-02-20 15:39 | Inpatient (IN) | payer OTHER ==
[~2020-02-20] VITALS: Ht 144.8 cm; Wt 79.1 kg
[2020-02-20 16:00] VITALS: BP 144/99
[2020-02-20 16:57] VITALS: BP 144/99
--- NOTE | 2020-02-20 17:01 | NUR ---
PATIENT MEETS [facility]. CIWA=20. PATIENT WANTS TO FOLLOW UP WITH [facility] FOR HER AFTERCARE PLAN. JOE CHATMAN B.A. MEDICAL CHIEF TECHNICIAN
[2020-02-20 17:30] LABS: BASO # 0.1 10*3/uL (0.0-0.1); BASO % 0.9 % (0.0-1.0); EOS # 0.1 10*3/uL (0.0-0.4); EOS % 1.7 % (1.0-4.0); HEMATOCRIT 39.9 % (37.0-47.0); LYMPH # 2.7 10*3/uL (1.3-4.4); LYMPH % 40.7 % (27.0-41.0); MEAN CELL VOLUME 87.5 fl (81.0-99.0); MEAN CORPUSCULAR HGB 29.2 pg (27.0-31.0); MEAN CORPUSCULAR HGB CONC 33.3 g/dl (33.0-37.0); MEAN PLATELET VOLUME 8.2 fl (9.6-12.3); MONO # 0.3 10*3/uL (0.1-1.0); MONO % 4.1 % (3.0-9.0); NEUT # 3.5 10*3/uL (2.3-7.9); NEUT % 52.1 % (47.0-73.0); PLATELET COUNT AUTOMATED 209 10*3/uL (130-400); RED BLOOD COUNT 4.56 10*6/uL (4.10-5.10); RED CELL DISTRI WIDTH 14.2 % (0-14.5); WHITE BLOOD COUNT 6.6 10*3/uL (4.8-10.8)
[2020-02-20 17:45] LABS: ALBUMIN 3.2 gm/dl (3.1-4.5); ALKALINE PHOSPHATASE 123 U/L (45-117); BUN 10 mg/dl (7-24); CHLORIDE 111 mmol/L (98-107); CREATININE 0.82 mg/dL (0.55-1.02); POTASSIUM 3.3 mmol/L (3.5-5.1); SGOT/AST 79 IU/L (3-35); SGPT/ALT 60 U/L (12-78); SODIUM 143 mmol/L (136-145); TOTAL PROTEIN 7.5 gm/dL (6.4-8.2)
[2020-02-20] MEDS ORDERED: KLONOPIN0.5 MG PO (17:53)
[2020-02-20] MEDS ORDERED: CYMBALTA20 M1 PO (17:54)
[2020-02-20] MEDS ORDERED: HYDROXYZINE PAM50 MG PO (17:54)
[2020-02-20] MEDS ORDERED: PRILOSEC20 M1 PO (17:55)
--- NOTE | 2020-02-20 17:57 | NUR ---
49 year old FEMALE admitted to room # 528 for stabilization. Reports an addiction to ALCOHOL last used 12 hours prior to admission. Compliant with admission procedure. CHANGED INTO GOWN, PERSONAL ITEMS REMOVED AND TAKEN DOWN TO SECURITY, IV STARTED LEFT HAND, REVIEWED [place] POLICY, MED REC COMPLETED, NOTIFIED DR. MATHEWS PATIENT REPORTS SEVERE ANXIETY DR. MATHEWS IN ROOM AND VERSED HE WILL ORDER MEDICATIONS.
[2020-02-20 17:58] LABS: BILIRUBIN Negative (Negative); BLOOD Negative (Negative); CLARITY Clear (Clear); COLOR Yellow (Yellow); GLUCOSE Negative (Negative); KETONE Negative (Negative); LEUKO ESTERASE Negative (Negative); NITRITE Negative (Negative); PH 6.5 (4.5-8.0); UROBILINOGEN 0.2 E.U./dl (0.0-1.0)
[2020-02-20] MEDS ORDERED: VITAMIN B-121000 MC1 SL (17:59)
[2020-02-20] MEDS ORDERED: FAMOTIDINE20 M1 PO (18:01)
[2020-02-20 18:05] LABS: URINE AMPHETAMINES < 1000 (1000ng/ml); URINE BARBITURATES < 200 (200ng/ml); URINE BENZODIAZEPINES < 200 (200ng/ml); URINE CANNABINOIDS (THC) < 50 (50ng/ml); URINE COCAINE < 300 (300ng/ml); URINE METHADONE < 300 (300ng/ml); URINE OPIATES < 300 (300ng/ml)
[2020-02-20 18:10] LABS: URINE PHENCYCLIDINE < 25 (25ng/ml)
[2020-02-20 18:31] LABS: BACTERIA TRACE; WBC 0-2 wbc/hpf (0-5)
[2020-02-20 20:00] VITALS: BP 136/81
--- NOTE | 2020-02-20 23:38 | NUR ---
PATIENT MEDICATED WITH ATIVAN IV FOR ANXIETY AND TREMORS. WILL MONITOR FOR EFFECTIVENESS. CALL LIGHT IN REACH.
[2020-02-21] VITALS: BP 152/90
--- NOTE | 2020-02-21 00:15 | NUR ---
ATIVAN EFFECTIVE. PATIENT RESTING IN BED WITH EYES CLOSED. NO SIGNS OR SYMPTOMS OF DISTRESS NOTED. CALL LIGHT IN REACH.
[2020-02-21 08:23] VITALS: BP 130/88
--- NOTE | 2020-02-21 08:24 | NUR ---
PT GIVEN PO TYLENOL, ROBAXIN, AND 1 MG ATIVAN VIA IVP AT THIS TIME FOR C/O HEADACHE, BODY ACHES, AND ANXIETY/FINE TREMORS. WILL MONITOR FOR EFFECTIVENESS. CALL LIGHT IN REACH.
--- NOTE | 2020-02-21 09:24 | NUR ---
PT STATES THAT PO TYLENOL AND ROBAXIN ARE SOMEWHAT EFFECTIVE. PT STATES THAT IV SITE IS HURTING AND BURNING. IV SITE DISCONTINUED TO LEFT HAND AT THIS TIME. WILL RESTART ANOTHER IV SITE.
--- NOTE | 2020-02-21 10:00 | NUR ---
IV started right antecubital with #22 protective cath after 0 attempts. Site prepped with Chloroprep. Sterile dressing applied. Patient tolerated procedure well. KIA BRYANT
--- NOTE | 2020-02-21 10:05 | NUR ---
PT STATES THAT PREVIOUS IV ATIVAN IS NOT EFFECTIVE AND STATES THAT SHE STILL HAS INCREASED ANXIETY AND FINE TREMORS. TREMORS VISIBLE AT THIS TIME. PHYSICIANS NOTIFIED AND NEW ORDER RECEIVED FOR 1 MG PO ATIVAN X1 NOW.
--- NOTE | 2020-02-21 10:21 | NUR ---
PT GIVEN 1 MG PO ATIVAN. WILL MONITOR FOR EFFECTIVENESS.
--- NOTE | 2020-02-21 11:21 | NUR ---
ATIVAN EFFECTIVE, PT SLEEPING IN BED.
[2020-02-21 12:00] VITALS: BP 132/83
--- NOTE | 2020-02-21 12:49 | NUR ---
PT GIVEN 1 MG ATIVAN VIA IVP AT THIS TIME FOR ANXIETY AND FINE TREMORS. WILL MONITOR FOR EFFECTIVENESS.
--- NOTE | 2020-02-21 13:42 | NUR ---
ROTARY ENGRAVER RECEIVED CONSULT FOR PATIENT. ROTARY ENGRAVER WENT TO SEE PATIENT IN ROOM 528- DOOR WAS SHUT. ROTARY ENGRAVER SPOKE WITH CLAUDE ALAMO WHO STATED THE PATIENTS COVID RESULT RETURNED AND PATIENT WOULD BE MOVING FLOORS. ROTARY ENGRAVER WILL FOLLOW AT A LATER TIME.
--- NOTE | 2020-02-21 14:58 | NUR ---
[employer] MAINTENANCE CHIEF CALLED THE NUMBER ON FILE FOR THE PATIENT. NO ANSWER AND NO VOICEMAIL SET UP.
[2020-02-21 16:00] VITALS: BP 134/83
--- NOTE | 2020-02-21 16:02 | NUR ---
PATIENT MEDICATED WITH IV ATIVAN PER ORDER FOR COMPLAINTS OF ANXIETY AND OBVIOUS TREMORS. CALL LIGHT IN REACH.
[2020-02-21 20:00] VITALS: BP 154/97
--- NOTE | 2020-02-21 20:00 | NUR ---
PATIENT RESTING IN BED. VERY ANXIOUS. ASSESSMENT COMPLETE. PATIENT CO STOMACH CRAMPS AND BACK PAIN, CO DIARRHEA, CO FEELING ANXIOUS. RESPS EASY AND REGULAR. CALL LIGHT WITHIN REACH.
--- NOTE | 2020-02-21 20:09 | NUR ---
PATIENT CO STOMACH AND BACK PAIN. MEDICATED WITH PRN MOTRIN PER PATIENT REQUEST. WILL ASSESS EFFECTIVENESS.
--- NOTE | 2020-02-21 20:10 | NUR ---
PATIENT CO DIARRHEA. MEDICATED WITH PRN IMODIUM. WILL ASSESS EFFECTIVENESS.
--- NOTE | 2020-02-21 20:11 | NUR ---
PATIENT VERY ANXIOUS. MEDICATED WITH IV ATIVAN PER PATIENT REQUEST. WILL ASSESS EFFECTIVENESS.
--- NOTE | 2020-02-21 21:09 | NUR ---
MOTRIN SOMEWHAT EFFECTIVE.
--- NOTE | 2020-02-21 21:10 | NUR ---
IMODIUM WORKING PER PATIENT.
--- NOTE | 2020-02-21 21:11 | NUR ---
ATIVAN EFFECTIVE PER PATIENT.
--- NOTE | 2020-02-21 22:21 | NUR ---
MEDICATED WITH PRN BENTYL FOR CO STOMACH CRAMPS. WILL ASSESS EFFECTIVENESS.
--- NOTE | 2020-02-21 23:21 | NUR ---
BENTYL NOT VERY EFFECTIVE PER PATIENT.
--- NOTE | 2020-02-21 23:42 | NUR ---
PRN MAALOX GIVEN FOR CO INGESTION. WILL ASSESS EFFECTIVENESS.
[2020-02-22] VITALS: BP 142/89
--- NOTE | 2020-02-22 00:42 | NUR ---
MAALOX EFFECTIVE PER PATIENT.
--- NOTE | 2020-02-22 01:01 | NUR ---
PATIENT REQUESTING IV ATIVAN FOR CO ANXIETY. PATIENT SHAKING AND ANXIOUS IV ATIVAN ADMINISTERED AT THIS TIME. WILL ASSESS EFFECTIVENESS.
--- NOTE | 2020-02-22 02:01 | NUR ---
ATIVAN EFFECTIVE PER PATIENT.
--- NOTE | 2020-02-22 04:33 | NUR ---
PATIENT WAS MEDICATED WITH PRN ATIVAN FOR CO ANXIETY/TREMORS. WILL ASSESS EFFECTIVENESS. CALL LIGHT IN REACH.
--- NOTE | 2020-02-22 05:05 | NUR ---
24 HR chart check completed.
--- NOTE | 2020-02-22 08:49 | NUR ---
ATIVAN GIVEN FOR C/O ANXIETY/AGITATION. WILL MONITOR.
--- NOTE | 2020-02-22 09:05 | NUR ---
CHRISTA JONES FOR C/O NAUSEA. WAS SCANNED IN AT 0940. WILL MONITOR.
--- NOTE | 2020-02-22 09:36 | NUR ---
PT REFUSES CM.
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
--- NOTE | 2020-02-22 10:00 | NUR ---
ATIVAN AND ZOFRAN EFFECTIVE PER PT.
[2020-02-22 12:00] VITALS: BP 137/98
--- NOTE | 2020-02-22 13:15 | NUR ---
ATIVAN GIVEN FOR C/O ANXIETY/AGITATION. WILL MONITOR.
--- NOTE | 2020-02-22 14:22 | NUR ---
ATIVAN APPEARS EFFECTIVE. PT RESTING IN BED WITH EYES CLOSED. WILL CONTINUE TO MONITOR.
[2020-02-22] MEDS ORDERED: KLONOPIN0.5 MG PO (14:40)
[2020-02-22] MEDS ORDERED: CHLORDIAZEPOXID25 M1 PO (14:41)
[2020-02-22] MEDS ORDERED: CARAFATE1 G1 PO ×2 (14:44)
--- NOTE | 2020-02-22 16:20 | NUR ---
[facility] Discharge instructions reviewed with patient/family. Patient receptive and verbalizes understanding. Follow-up care arranged. Written instructions given to patient/family. RICH MCCONNELL
== END 2020-02-22 16:20 | disposition home or self-care (01) | DRG 775 ==
LOC: 5E 15:39 → 4E 15:39 → 5E 17:21 → 4E 02-21 13:20
PROVIDERS: Student in an Organized Health Care Education/Training Program; ADMIT Internal Medicine; ATTEND Internal Medicine
DX: F10.239 Alcohol dependence with withdrawal, unspecified (principal); E87.8 Other disorders of electrolyte and fluid balance, not elsewhere classified; F41.9 Anxiety disorder, unspecified; E87.6 Hypokalemia; R74.8 Abnormal levels of other serum enzymes; E44.1 Mild protein-calorie malnutrition; F25.0 Schizoaffective disorder, bipolar type; F17.210 Nicotine dependence, cigarettes, uncomplicated; F12.90 Cannabis use, unspecified, uncomplicated; F40.11 Social phobia, generalized; E66.09 Other obesity due to excess calories; E55.9 Vitamin D deficiency, unspecified; F32.5 Major depressive disorder, single episode, in full remission; R10.13 Epigastric pain; R56.9 Unspecified convulsions; Z91.14 Patient's other noncompliance with medication regimen; Z71.6 Tobacco abuse counseling; Z59.0 Homelessness; Z68.37 Body mass index [BMI] 37.0-37.9, adult; Z90.49 Acquired absence of other specified parts of digestive tract; Z98.51 Tubal ligation status; Z82.0 Family history of epilepsy and other diseases of the nervous system; Z82.49 Family history of ischemic heart disease and other diseases of the circulatory system; Z81.3 Family history of other psychoactive substance abuse and dependence; Z79.899 Other long term (current) drug therapy

== ENCOUNTER 2020-03-20 22:51 | Emergency (ER) | payer OTHER ==
[~2020-03-20] VITALS: Ht 132 cm; Wt 77.1 kg
[~2020-03-20 22:51] MED LIST changes: +CARAFATE1 G1 PO; +CHLORDIAZEPOXID25 M1 PO; +CYMBALTA20 M1 PO; +FAMOTIDINE20 M1 PO; +HYDROXYZINE PAM50 MG PO; +KLONOPIN0.5 MG PO; +PRILOSEC20 M1 PO; +VITAMIN B-121000 MC1 SL
[2020-03-20 22:55] VITALS: BP 121/68
[2020-03-20 23:35] LABS: BASO % 0.4 % (0.0-1.0); EOS # 0.2 10*3/uL (0.0-0.4); HEMATOCRIT 41.1 % (37.0-47.0); LYMPH # 4.3 10*3/uL (1.3-4.4); LYMPH % 51.4 % (27.0-41.0); MEAN CELL VOLUME 87.8 fl (81.0-99.0); MEAN CORPUSCULAR HGB 28.4 pg (27.0-31.0); MEAN CORPUSCULAR HGB CONC 32.4 g/dl (33.0-37.0); MEAN PLATELET VOLUME 8.3 fl (9.6-12.3); MONO # 0.5 10*3/uL (0.1-1.0); MONO % 5.6 % (3.0-9.0); NEUT # 3.4 10*3/uL (2.3-7.9); NEUT % 40.4 % (47.0-73.0); PLATELET COUNT AUTOMATED 303 10*3/uL (130-400); RED BLOOD COUNT 4.68 10*6/uL (4.10-5.10); RED CELL DISTRI WIDTH 14.9 % (0-14.5); WHITE BLOOD COUNT 8.4 10*3/uL (4.8-10.8)
[2020-03-20 23:48] LABS: BILIRUBIN Negative (Negative); BLOOD Negative (Negative); CLARITY Clear (Clear); COLOR Yellow (Yellow); GLUCOSE Negative (Negative); KETONE Negative (Negative); LEUKO ESTERASE Negative (Negative); NITRITE Negative (Negative); PH 5.5 (4.5-8.0); SPECIFIC GRAVITY <= 1.005 (1.001-1.030); UROBILINOGEN 0.2 E.U./dl (0.0-1.0)
[2020-03-20 23:51] LABS: ALBUMIN 3.3 gm/dl (3.1-4.5); ALKALINE PHOSPHATASE 110 U/L (45-117); BUN 11 mg/dl (7-24); CHLORIDE 109 mmol/L (98-107); CREATININE 0.81 mg/dL (0.55-1.02); LIPASE 78 U/L (73-393); POTASSIUM 3.3 mmol/L (3.5-5.1); SGOT/AST 37 IU/L (3-35); SGPT/ALT 42 U/L (12-78); SODIUM 142 mmol/L (136-145); TOTAL PROTEIN 7.6 gm/dL (6.4-8.2)
[2020-03-20 23:56] LABS: URINE AMPHETAMINES < 1000 (1000ng/ml); URINE BARBITURATES < 200 (200ng/ml); URINE BENZODIAZEPINES > 200 (200ng/ml); URINE CANNABINOIDS (THC) < 50 (50ng/ml); URINE COCAINE < 300 (300ng/ml); URINE METHADONE < 300 (300ng/ml); URINE OPIATES < 300 (300ng/ml)
[2020-03-20 23:58] LABS: URINE PHENCYCLIDINE < 25 (25ng/ml)
[2020-03-20 23:59] LABS: BACTERIA TRACE; EPITHELIAL CELLS 0-2; RBC 0-2 rbc/hpf (0-2); WBC 0-2 wbc/hpf (0-5)
== END 2020-03-21 05:28 | disposition home or self-care (01) ==
LOC: ED 22:51
PROVIDERS: Emergency Medicine
DX: K57.90 Diverticulosis of intestine, part unspecified, without perforation or abscess without bleeding (principal); F41.9 Anxiety disorder, unspecified; F32.9 Major depressive disorder, single episode, unspecified; Z79.899 Other long term (current) drug therapy

== ENCOUNTER 2020-04-09 17:46 | Emergency (ER) | payer OTHER ==
[~2020-04-09] VITALS: Ht 144.7 cm; Wt 72.6 kg
[2020-04-09 17:47] VITALS: BP 110/62
[2020-04-09 18:26] LABS: BASO # 0.1 10*3/uL (0.0-0.1); BASO % 1.1 % (0.0-1.0); EOS # 0.1 10*3/uL (0.0-0.4); EOS % 1.1 % (1.0-4.0); HEMATOCRIT 40.7 % (37.0-47.0); LYMPH # 2.7 10*3/uL (1.3-4.4); LYMPH % 47.5 % (27.0-41.0); MEAN CELL VOLUME 88.9 fl (81.0-99.0); MEAN CORPUSCULAR HGB CONC 32.7 g/dl (33.0-37.0); MEAN PLATELET VOLUME 8.1 fl (9.6-12.3); MONO # 0.2 10*3/uL (0.1-1.0); MONO % 4.1 % (3.0-9.0); NEUT # 2.6 10*3/uL (2.3-7.9); NEUT % 45.7 % (47.0-73.0); PLATELET COUNT AUTOMATED 229 10*3/uL (130-400); RED BLOOD COUNT 4.58 10*6/uL (4.10-5.10); RED CELL DISTRI WIDTH 15.2 % (0-14.5); WHITE BLOOD COUNT 5.6 10*3/uL (4.8-10.8)
[2020-04-09 18:42] LABS: ALBUMIN 3.5 gm/dl (3.1-4.5); ALKALINE PHOSPHATASE 99 U/L (45-117); BUN 18 mg/dl (7-24); CHLORIDE 109 mmol/L (98-107); CREATININE 0.79 mg/dL (0.55-1.02); LIPASE 73 U/L (73-393); POTASSIUM 3.6 mmol/L (3.5-5.1); SGOT/AST 73 IU/L (3-35); SGPT/ALT 60 U/L (12-78); SODIUM 141 mmol/L (136-145); TOTAL PROTEIN 7.6 gm/dL (6.4-8.2)
[2020-04-09 19:15] LABS: BILIRUBIN Negative (Negative); BLOOD Negative (Negative); CLARITY Clear (Clear); COLOR Yellow (Yellow); GLUCOSE Negative (Negative); KETONE Negative (Negative); LEUKO ESTERASE Negative (Negative); NITRITE Negative (Negative); PH 5.5 (4.5-8.0); UROBILINOGEN 0.2 E.U./dl (0.0-1.0)
[2020-04-09 19:23] LABS: URINE AMPHETAMINES > 1000 (1000ng/ml); URINE BARBITURATES < 200 (200ng/ml); URINE BENZODIAZEPINES > 200 (200ng/ml); URINE CANNABINOIDS (THC) > 50 (50ng/ml); URINE COCAINE > 300 (300ng/ml); URINE METHADONE < 300 (300ng/ml); URINE OPIATES < 300 (300ng/ml)
[2020-04-09 19:32] LABS: RBC 0-2 rbc/hpf (0-2)
[2020-04-09 19:33] LABS: BACTERIA 3+; URINE PHENCYCLIDINE < 25 (25ng/ml)
[2020-04-09] MEDS ORDERED: AUGMENTIN 875875 MG PO (22:04)
[2020-04-09] MEDS ORDERED: DICYCLOMINE HCL10 MG PO (22:04)
== END 2020-04-09 22:15 | disposition home or self-care (01) ==
LOC: ED 17:46
PROVIDERS: Physician Assistant
DX: K57.32 Diverticulitis of large intestine without perforation or abscess without bleeding (principal); F41.9 Anxiety disorder, unspecified; F32.9 Major depressive disorder, single episode, unspecified; Z79.899 Other long term (current) drug therapy; Z90.49 Acquired absence of other specified parts of digestive tract; Z98.51 Tubal ligation status; Z86.14 Personal history of Methicillin resistant Staphylococcus aureus infection

== ENCOUNTER 2020-04-10 12:02 | Emergency (ER) | payer OTHER ==
[~2020-04-10] VITALS: Wt 80.3 kg
[~2020-04-10 12:02] MED LIST changes: +AUGMENTIN 875875 MG PO; +DICYCLOMINE HCL10 MG PO
[2020-04-10 12:04] VITALS: BP 147/99
[2020-04-10 12:44] LABS: BASO # 0.1 10*3/uL (0.0-0.1); BASO % 1.2 % (0.0-1.0); EOS % 0.5 % (1.0-4.0); HEMATOCRIT 41.6 % (37.0-47.0); LYMPH # 2.7 10*3/uL (1.3-4.4); LYMPH % 46.7 % (27.0-41.0); MEAN CELL VOLUME 86.7 fl (81.0-99.0); MEAN CORPUSCULAR HGB 28.5 pg (27.0-31.0); MEAN CORPUSCULAR HGB CONC 32.9 g/dl (33.0-37.0); MONO # 0.3 10*3/uL (0.1-1.0); MONO % 5.7 % (3.0-9.0); NEUT # 2.7 10*3/uL (2.3-7.9); NEUT % 45.7 % (47.0-73.0); PLATELET COUNT AUTOMATED 245 10*3/uL (130-400); WHITE BLOOD COUNT 5.8 10*3/uL (4.8-10.8)
[2020-04-10 12:59] LABS: ALBUMIN 3.7 gm/dl (3.1-4.5); BUN 15 mg/dl (7-24); CHLORIDE 107 mmol/L (98-107); CREATININE 0.78 mg/dL (0.55-1.02); POTASSIUM 3.5 mmol/L (3.5-5.1); SGOT/AST 115 IU/L (3-35); SGPT/ALT 74 U/L (12-78); SODIUM 140 mmol/L (136-145)
[2020-04-10 13:01] LABS: ALKALINE PHOSPHATASE 111 U/L (45-117)
[2020-04-10 13:13] LABS: BILIRUBIN Negative (Negative); BLOOD Negative (Negative); CLARITY Clear (Clear); COLOR Yellow (Yellow); GLUCOSE Negative (Negative); KETONE Negative (Negative); LEUKO ESTERASE Negative (Negative); NITRITE Negative (Negative); PH 5.5 (4.5-8.0); SPECIFIC GRAVITY <= 1.005 (1.001-1.030); UROBILINOGEN 0.2 E.U./dl (0.0-1.0)
[2020-04-10 13:27] LABS: BACTERIA TRACE
== END 2020-04-10 19:52 | disposition home or self-care (01) ==
LOC: ED 12:02
PROVIDERS: Nurse Practitioner
DX: E87.2 Acidosis (principal); F17.200 Nicotine dependence, unspecified, uncomplicated; Z79.899 Other long term (current) drug therapy

== ENCOUNTER 2020-07-27 04:38 | Emergency (ER) | payer OTHER ==
[~2020-07-27] VITALS: Ht 162.5 cm; Wt 77.1 kg
[2020-07-27 04:39] VITALS: BP 134/69
[2020-07-27 06:04] LABS: BASO # 0.1 10*3/uL (0.0-0.1); BASO % 0.6 % (0.0-1.0); EOS # 0.2 10*3/uL (0.0-0.4); EOS % 2.3 % (1.0-4.0); LYMPH # 2.5 10*3/uL (1.3-4.4); LYMPH % 31.7 % (27.0-41.0); MEAN CELL VOLUME 90.3 fl (81.0-99.0); MEAN CORPUSCULAR HGB 29.9 pg (27.0-31.0); MEAN CORPUSCULAR HGB CONC 33.1 g/dl (33.0-37.0); MEAN PLATELET VOLUME 8.6 fl (9.6-12.3); MONO # 0.4 10*3/uL (0.1-1.0); MONO % 5.6 % (3.0-9.0); NEUT # 4.6 10*3/uL (2.3-7.9); NEUT % 59.5 % (47.0-73.0); PLATELET COUNT AUTOMATED 200 10*3/uL (130-400); RED BLOOD COUNT 4.32 10*6/uL (4.10-5.10); RED CELL DISTRI WIDTH 14.1 % (0-14.5); WHITE BLOOD COUNT 7.7 10*3/uL (4.8-10.8)
[2020-07-27 06:27] LABS: ALBUMIN 3.1 gm/dl (3.1-4.5); ALKALINE PHOSPHATASE 101 U/L (45-117); BUN 15 mg/dl (7-24); CHLORIDE 112 mmol/L (98-107); CREATININE 0.78 mg/dL (0.55-1.02); POTASSIUM 2.9 mmol/L (3.5-5.1); SGOT/AST 29 IU/L (3-35); SGPT/ALT 35 U/L (12-78); SODIUM 143 mmol/L (136-145); TOTAL PROTEIN 6.8 gm/dL (6.4-8.2)
== END 2020-07-27 07:36 | disposition home or self-care (01) ==
LOC: ED 04:38
PROVIDERS: Emergency Medicine
DX: S40.021A Contusion of right upper arm, initial encounter (principal); M25.552 Pain in left hip; F41.9 Anxiety disorder, unspecified; F32.9 Major depressive disorder, single episode, unspecified; E87.6 Hypokalemia; F17.200 Nicotine dependence, unspecified, uncomplicated; Z88.8 Allergy status to other drugs, medicaments and biological substances; Z79.899 Other long term (current) drug therapy; Z90.49 Acquired absence of other specified parts of digestive tract; Z98.51 Tubal ligation status; X58.XXXA Exposure to other specified factors, initial encounter; Y93.89 Activity, other specified; Y92.89 Other specified places as the place of occurrence of the external cause; Y99.8 Other external cause status

== ENCOUNTER 2020-10-05 10:22 | Emergency (ER) | payer OTHER ==
[~2020-10-05] VITALS: Ht 142.2 cm; Wt 77.1 kg
[2020-10-05 10:23] VITALS: BP 173/81
[2020-10-05 10:54] LABS: BASO # 0.1 10*3/uL (0.0-0.1); BASO % 0.7 % (0.0-1.0); EOS % 0.4 % (1.0-4.0); HEMATOCRIT 42.4 % (37.0-47.0); LYMPH # 1.8 10*3/uL (1.3-4.4); LYMPH % 25.1 % (27.0-41.0); MEAN CELL VOLUME 86.4 fl (81.0-99.0); MEAN CORPUSCULAR HGB 29.1 pg (27.0-31.0); MEAN CORPUSCULAR HGB CONC 33.7 g/dl (33.0-37.0); MEAN PLATELET VOLUME 8.3 fl (9.6-12.3); MONO # 0.4 10*3/uL (0.1-1.0); NEUT % 68.4 % (47.0-73.0); PLATELET COUNT AUTOMATED 271 10*3/uL (130-400); RED BLOOD COUNT 4.91 10*6/uL (4.10-5.10); RED CELL DISTRI WIDTH 13.3 % (0-14.5); WHITE BLOOD COUNT 7.3 10*3/uL (4.8-10.8)
[2020-10-05 11:12] LABS: ALBUMIN 3.6 gm/dl (3.1-4.5); ALKALINE PHOSPHATASE 116 U/L (45-117); BUN 9 mg/dl (7-24); CHLORIDE 103 mmol/L (98-107); CREATININE 0.69 mg/dL (0.55-1.02); LIPASE 59 U/L (73-393); POTASSIUM 3.2 mmol/L (3.5-5.1); SGOT/AST 34 IU/L (3-35); SGPT/ALT 28 U/L (12-78); SODIUM 134 mmol/L (136-145)
[2020-10-05 11:15] LABS: TROPONIN I < 0.015 ng/ml (<0.045)
[2020-10-05 11:23] LABS: BILIRUBIN Negative (Negative); BLOOD Negative (Negative); CLARITY Clear (Clear); COLOR Yellow (Yellow); GLUCOSE Negative (Negative); KETONE Negative (Negative); LEUKO ESTERASE Negative (Negative); NITRITE Negative (Negative); UROBILINOGEN 0.2 E.U./dl (0.0-1.0)
[2020-10-05 11:28] LABS: URINE AMPHETAMINES < 1000 (1000ng/ml); URINE BARBITURATES < 200 (200ng/ml); URINE BENZODIAZEPINES < 200 (200ng/ml); URINE CANNABINOIDS (THC) > 50 (50ng/ml); URINE COCAINE < 300 (300ng/ml); URINE METHADONE < 300 (300ng/ml); URINE OPIATES < 300 (300ng/ml)
[2020-10-05 11:30] LABS: URINE PHENCYCLIDINE < 25 (25ng/ml)
[2020-10-05 11:51] LABS: WBC 0-2 wbc/hpf (0-5)
[2020-10-05] MEDS ORDERED: CYCLOBENZAPRINE10 MG PO (14:16)
[2020-10-05] MEDS ORDERED: ZOFRAN4 MG PO (14:16)
[2020-10-05] MEDS ORDERED: IBU600 M1 PO (14:16)
== END 2020-10-05 14:24 | disposition home or self-care (01) ==
LOC: ED 10:22
PROVIDERS: Family Medicine
DX: S39.012A Strain of muscle, fascia and tendon of lower back, initial encounter (principal); F31.9 Bipolar disorder, unspecified; F17.200 Nicotine dependence, unspecified, uncomplicated; Z88.6 Allergy status to analgesic agent; Z79.899 Other long term (current) drug therapy; Z90.49 Acquired absence of other specified parts of digestive tract; Z98.51 Tubal ligation status; X58.XXXA Exposure to other specified factors, initial encounter; Y93.89 Activity, other specified; Y92.89 Other specified places as the place of occurrence of the external cause; Y99.8 Other external cause status

== ENCOUNTER 2020-10-17 18:48 | Inpatient (IN) | payer OTHER ==
[~2020-10-17] VITALS: Wt 68.0 kg
[~2020-10-17 18:48] MED LIST changes: +IBU600 M1 PO
[2020-10-17 19:00] VITALS: BP 156/96
[2020-10-17 20:36] LABS: BASO # 0.1 10*3/uL (0.0-0.1); BASO % 0.7 % (0.0-1.0); EOS # 0.1 10*3/uL (0.0-0.4); EOS % 1.1 % (1.0-4.0); HEMATOCRIT 41.1 % (37.0-47.0); LYMPH # 3.2 10*3/uL (1.3-4.4); LYMPH % 45.1 % (27.0-41.0); MEAN CELL VOLUME 88.2 fl (81.0-99.0); MEAN CORPUSCULAR HGB 29.2 pg (27.0-31.0); MEAN CORPUSCULAR HGB CONC 33.1 g/dl (33.0-37.0); MEAN PLATELET VOLUME 8.5 fl (9.6-12.3); MONO # 0.4 10*3/uL (0.1-1.0); MONO % 6.1 % (3.0-9.0); NEUT # 3.3 10*3/uL (2.3-7.9); NEUT % 46.6 % (47.0-73.0); PLATELET COUNT AUTOMATED 173 10*3/uL (130-400); RED BLOOD COUNT 4.66 10*6/uL (4.10-5.10); RED CELL DISTRI WIDTH 13.7 % (0-14.5); WHITE BLOOD COUNT 7.2 10*3/uL (4.8-10.8)
[2020-10-17 20:51] LABS: ALBUMIN 3.5 gm/dl (3.1-4.5); CREATININE 1.34 mg/dL (0.55-1.02); POTASSIUM 3.5 mmol/L (3.5-5.1); TOTAL PROTEIN 7.8 gm/dL (6.4-8.2)
[2020-10-17 22:45] LABS: BILIRUBIN Negative (Negative); BLOOD Negative (Negative); CLARITY Clear (Clear); COLOR Yellow (Yellow); GLUCOSE Negative (Negative); KETONE Trace (Negative); LEUKO ESTERASE Negative (Negative); NITRITE Negative (Negative)
[2020-10-18 00:17] VITALS: BP 158/88
[2020-10-18 03:46] VITALS: BP 152/94
[2020-10-18 06:23] VITALS: BP 150/86
[2020-10-18 08:27] VITALS: BP 149/101
== END 2020-10-18 21:59 | disposition left against medical advice (07) | DRG 770 ==
LOC: ED 18:48 → EDHOLD 10-18 10:10
PROVIDERS: Emergency Medicine; ADMIT Internal Medicine; ATTEND Internal Medicine
DX: F10.239 Alcohol dependence with withdrawal, unspecified (principal); N17.0 Acute kidney failure with tubular necrosis; M54.32 Sciatica, left side; M54.10 Radiculopathy, site unspecified; F17.210 Nicotine dependence, cigarettes, uncomplicated; F25.0 Schizoaffective disorder, bipolar type; F31.32 Bipolar disorder, current episode depressed, moderate; Z53.29 Procedure and treatment not carried out because of patient's decision for other reasons; E66.9 Obesity, unspecified; F41.9 Anxiety disorder, unspecified; K57.90 Diverticulosis of intestine, part unspecified, without perforation or abscess without bleeding; Z90.49 Acquired absence of other specified parts of digestive tract; Z98.51 Tubal ligation status; Z82.0 Family history of epilepsy and other diseases of the nervous system; Z81.3 Family history of other psychoactive substance abuse and dependence; Z88.6 Allergy status to analgesic agent; Z79.899 Other long term (current) drug therapy; Z82.49 Family history of ischemic heart disease and other diseases of the circulatory system

== ENCOUNTER 2020-10-23 15:48 | Emergency (ER) | payer OTHER ==
[~2020-10-23] VITALS: Ht 142.2 cm; Wt 77.1 kg
[2020-10-23 15:58] VITALS: BP 144/87
== END 2020-10-23 17:30 | disposition home or self-care (01) ==
LOC: ED 15:48
DX: F41.9 Anxiety disorder, unspecified (principal); F17.200 Nicotine dependence, unspecified, uncomplicated; F12.10 Cannabis abuse, uncomplicated; Z59.0 Homelessness; Z90.49 Acquired absence of other specified parts of digestive tract; Z98.51 Tubal ligation status; Z88.6 Allergy status to analgesic agent

== ENCOUNTER 2020-12-02 16:31 | Emergency (ER) | payer OTHER ==
[2020-12-02 16:35] VITALS: BP 190/102
== END 2020-12-02 21:32 | disposition home or self-care (01) ==
LOC: ED 16:31
DX: S10.91XA Abrasion of unspecified part of neck, initial encounter (principal); F17.200 Nicotine dependence, unspecified, uncomplicated; Z88.8 Allergy status to other drugs, medicaments and biological substances; Z79.899 Other long term (current) drug therapy; Z90.49 Acquired absence of other specified parts of digestive tract; Z98.890 Other specified postprocedural states; Z98.51 Tubal ligation status; X99.1XXA Assault by knife, initial encounter; Y93.89 Activity, other specified; Y92.098 Other place in other non-institutional residence as the place of occurrence of the external cause; Y99.8 Other external cause status

== ENCOUNTER 2021-01-05 19:41 | Emergency (ER) | payer OTHER ==
[~2021-01-05] VITALS: Ht 157.4 cm; Wt 71.7 kg
[2021-01-05 19:44] VITALS: BP 128/91
[2021-01-05 20:02] LABS: HEMATOCRIT 45.1 % (37.0-47.0); MEAN CELL VOLUME 87.4 fl (81.0-99.0); MEAN CORPUSCULAR HGB 29.5 pg (27.0-31.0); MEAN CORPUSCULAR HGB CONC 33.7 g/dl (33.0-37.0); MEAN PLATELET VOLUME 8.4 fl (9.6-12.3); PLATELET COUNT AUTOMATED 293 10*3/uL (130-400); RED BLOOD COUNT 5.16 10*6/uL (4.10-5.10); RED CELL DISTRI WIDTH 14.3 % (0-14.5)
[2021-01-05 20:16] LABS: ALBUMIN 3.5 gm/dl (3.1-4.5); ALKALINE PHOSPHATASE 81 U/L (45-117); BUN 7 mg/dl (7-24); CHLORIDE 109 mmol/L (98-107); CREATININE 0.72 mg/dL (0.55-1.02); POTASSIUM 3.1 mmol/L (3.5-5.1); SGOT/AST 78 IU/L (3-35); SGPT/ALT 55 U/L (12-78); SODIUM 142 mmol/L (136-145); TOTAL PROTEIN 8.1 gm/dL (6.4-8.2)
[2021-01-05 20:24] LABS: BASOPHILS 1 % (0-1); PLATELET SUFFICIENCY NORMAL (NORMAL); TOTAL CELLS COUNTED 100 #CELLS
== END 2021-01-06 06:04 | disposition home or self-care (01) ==
LOC: ED 19:41
PROVIDERS: Internal Medicine
DX: F10.929 Alcohol use, unspecified with intoxication, unspecified (principal); F17.200 Nicotine dependence, unspecified, uncomplicated; Z88.6 Allergy status to analgesic agent; Z79.899 Other long term (current) drug therapy; Y90.9 Presence of alcohol in blood, level not specified

== ENCOUNTER 2021-05-10 00:02 | Emergency (ER) | payer OTHER ==
[2021-05-10 00:06] VITALS: BP 120/75
[2021-05-10 00:27] LABS: BASO # 0.1 10*3/uL (0.0-0.1); BASO % 0.7 % (0.0-1.0); EOS # 0.2 10*3/uL (0.0-0.4); EOS % 2.3 % (1.0-4.0); HEMATOCRIT 39.9 % (37.0-47.0); LYMPH # 3.3 10*3/uL (1.3-4.4); LYMPH % 44.7 % (27.0-41.0); MEAN CELL VOLUME 91.7 fl (81.0-99.0); MEAN CORPUSCULAR HGB 30.1 pg (27.0-31.0); MEAN CORPUSCULAR HGB CONC 32.8 g/dl (33.0-37.0); MEAN PLATELET VOLUME 8.4 fl (9.6-12.3); MONO # 0.4 10*3/uL (0.1-1.0); MONO % 5.8 % (3.0-9.0); NEUT # 3.4 10*3/uL (2.3-7.9); NEUT % 46.4 % (47.0-73.0); PLATELET COUNT AUTOMATED 245 10*3/uL (130-400); RED BLOOD COUNT 4.35 10*6/uL (4.10-5.10); RED CELL DISTRI WIDTH 14.1 % (0-14.5); WHITE BLOOD COUNT 7.4 10*3/uL (4.8-10.8)
[2021-05-10 00:42] LABS: ALBUMIN 3.2 gm/dl (3.1-4.5); ALKALINE PHOSPHATASE 113 U/L (45-117); BUN 12 mg/dl (7-24); CHLORIDE 110 mmol/L (98-107); CREATININE 0.94 mg/dL (0.55-1.02); POTASSIUM 3.5 mmol/L (3.5-5.1); SGOT/AST 14 IU/L (3-35); SGPT/ALT 20 U/L (12-78); SODIUM 141 mmol/L (136-145); TOTAL PROTEIN 6.9 gm/dL (6.4-8.2)
== END 2021-05-10 00:50 | disposition left against medical advice (07) ==
LOC: ED 00:02
PROVIDERS: Internal Medicine
DX: R56.9 Unspecified convulsions (principal); F17.200 Nicotine dependence, unspecified, uncomplicated; Z88.6 Allergy status to analgesic agent; Z79.899 Other long term (current) drug therapy; Z90.49 Acquired absence of other specified parts of digestive tract; Z98.890 Other specified postprocedural states; Z98.51 Tubal ligation status

== ENCOUNTER 2021-07-28 16:19 | Emergency (ER) | payer OTHER ==
[~2021-07-28] VITALS: Wt 72.6 kg
[2021-07-28 16:30] VITALS: BP 108/65
[2021-07-28] MEDS ORDERED: 'CLONIDINE0.1 MG PO (16:38)
[2021-07-28] MEDS ORDERED: DOXEPIN HCL10 MG PO (16:39)
[2021-07-28] MEDS ORDERED: CLONAZEPAM0.5 M2 PO (16:39)
[2021-07-28] MEDS ORDERED: DOCUSATE SOD100 MG PO (16:40)
[2021-07-28 16:59] LABS: BASO % 0.5 % (0.0-1.0); EOS # 0.2 10*3/uL (0.0-0.4); EOS % 2.5 % (1.0-4.0); HEMATOCRIT 38.2 % (37.0-47.0); LYMPH # 2.5 10*3/uL (1.3-4.4); LYMPH % 40.1 % (27.0-41.0); MEAN CELL VOLUME 87.2 fl (81.0-99.0); MEAN CORPUSCULAR HGB 29.5 pg (27.0-31.0); MEAN CORPUSCULAR HGB CONC 33.8 g/dl (33.0-37.0); MEAN PLATELET VOLUME 8.2 fl (9.6-12.3); MONO # 0.5 10*3/uL (0.1-1.0); MONO % 7.3 % (3.0-9.0); NEUT # 3.1 10*3/uL (2.3-7.9); NEUT % 49.4 % (47.0-73.0); PLATELET COUNT AUTOMATED 281 10*3/uL (130-400); RED BLOOD COUNT 4.38 10*6/uL (4.10-5.10); RED CELL DISTRI WIDTH 13.1 % (0-14.5); WHITE BLOOD COUNT 6.3 10*3/uL (4.8-10.8)
[2021-07-28 17:18] LABS: ALKALINE PHOSPHATASE 115 U/L (45-117); BUN 11 mg/dl (7-24); CHLORIDE 103 mmol/L (98-107); CREATININE 0.77 mg/dL (0.55-1.02); LIPASE 41 U/L (73-393); POTASSIUM 3.9 mmol/L (3.5-5.1); SGOT/AST 24 IU/L (3-35); SGPT/ALT 15 U/L (12-78); SODIUM 139 mmol/L (136-145); TOTAL PROTEIN 7.2 gm/dL (6.4-8.2)
[2021-07-28 17:19] LABS: ETHYL ALCOHOL < 3.0 mg/dl (<3)
[2021-07-28 17:30] LABS: BILIRUBIN Negative (Negative); BLOOD Negative (Negative); CLARITY Cloudy (Clear); COLOR Yellow (Yellow); GLUCOSE Negative (Negative); KETONE Trace (Negative); LEUKO ESTERASE Trace (Negative); NITRITE Negative (Negative); PH 5.5 (4.5-8.0); SPECIFIC GRAVITY 1.025 (1.001-1.030)
[2021-07-28 17:39] LABS: URINE AMPHETAMINES < 1000 (1000ng/ml); URINE BARBITURATES < 200 (200ng/ml); URINE BENZODIAZEPINES > 200 (200ng/ml); URINE CANNABINOIDS (THC) > 50 (50ng/ml); URINE COCAINE < 300 (300ng/ml); URINE METHADONE < 300 (300ng/ml); URINE OPIATES < 300 (300ng/ml)
[2021-07-28 17:40] LABS: BACTERIA 1+; WBC 0-2 wbc/hpf (0-5)
[2021-07-28 17:41] LABS: URINE PHENCYCLIDINE < 25 (25ng/ml)
[2021-07-28] MEDS ORDERED: NAPROSYN500 MG PO (18:38)
== END 2021-07-28 18:57 | disposition home or self-care (01) ==
LOC: ED 16:19
PROVIDERS: Physician Assistant
DX: M79.605 Pain in left leg (principal); M54.9 Dorsalgia, unspecified; Z88.6 Allergy status to analgesic agent; Z79.899 Other long term (current) drug therapy; Z90.49 Acquired absence of other specified parts of digestive tract; Z98.890 Other specified postprocedural states; Z98.51 Tubal ligation status

== ENCOUNTER → 2021-09-13 | Outpatient (CLI) | payer OTHER ==
[~2021-09-13] MED LIST changes: +'CLONIDINE0.1 MG PO; +DOCUSATE SOD100 MG PO; +DOXEPIN HCL10 MG PO
== END | disposition home or self-care (01) ==
LOC: RAD 11:34
PROVIDERS: ATTEND Nurse Practitioner Family
DX: M51.34 Other intervertebral disc degeneration, thoracic region (principal); M50.30 Other cervical disc degeneration, unspecified cervical region; M25.78 Osteophyte, vertebrae; M51.36 Other intervertebral disc degeneration, lumbar region; M48.061 Spinal stenosis, lumbar region without neurogenic claudication

== ENCOUNTER 2021-10-24 23:13 | Emergency (ER) | payer OTHER ==
[2021-10-24 23:15] VITALS: BP 142/84
[2021-10-25] MEDS ORDERED: NAPROXEN250 MG PO (01:08)
[2021-10-25] MEDS ORDERED: METHOCARBAMOL500 M1 PO (01:08)
== END 2021-10-25 01:11 | disposition home or self-care (01) ==
LOC: ED 23:13
DX: M54.32 Sciatica, left side (principal); Z88.8 Allergy status to other drugs, medicaments and biological substances; Z79.899 Other long term (current) drug therapy; Z90.49 Acquired absence of other specified parts of digestive tract; Z98.51 Tubal ligation status; Z87.891 Personal history of nicotine dependence

== ENCOUNTER 2021-12-09 07:12 | Emergency (ER) | payer OTHER ==
[~2021-12-09] VITALS: Wt 68.0 kg
[~2021-12-09 07:12] MED LIST changes: +METHOCARBAMOL500 M1 PO; +NAPROXEN250 MG PO
[2021-12-09 07:13] VITALS: BP 107/70
[2021-12-09 08:46] LABS: BASO % 0.6 % (0.0-1.0); EOS # 0.2 10*3/uL (0.0-0.4); EOS % 2.4 % (1.0-4.0); LYMPH # 3.7 10*3/uL (1.3-4.4); LYMPH % 52.1 % (27.0-41.0); MEAN CELL VOLUME 88.7 fl (81.0-99.0); MEAN CORPUSCULAR HGB 29.9 pg (27.0-31.0); MEAN CORPUSCULAR HGB CONC 33.7 g/dl (33.0-37.0); MEAN PLATELET VOLUME 8.2 fl (9.6-12.3); MONO # 0.3 10*3/uL (0.1-1.0); MONO % 4.7 % (3.0-9.0); NEUT # 2.8 10*3/uL (2.3-7.9); NEUT % 39.9 % (47.0-73.0); PLATELET COUNT AUTOMATED 285 10*3/uL (130-400); RED BLOOD COUNT 4.85 10*6/uL (4.10-5.10); RED CELL DISTRI WIDTH 12.7 % (0-14.5); WHITE BLOOD COUNT 7.1 10*3/uL (4.8-10.8)
[2021-12-09 08:58] LABS: BUN 10 mg/dl (7-24); CHLORIDE 108 mmol/L (98-107); CREATININE 0.59 mg/dL (0.55-1.02); POTASSIUM 3.8 mmol/L (3.5-5.1); SODIUM 144 mmol/L (136-145)
[2021-12-09 09:04] LABS: BUN 10 mg/dl (7-24); CHLORIDE 108 mmol/L (98-107); POTASSIUM 3.8 mmol/L (3.5-5.1); SGOT/AST 12 IU/L (3-35); SGPT/ALT 15 U/L (12-78); SODIUM 143 mmol/L (136-145); TOTAL PROTEIN 7.7 gm/dL (6.4-8.2)
[2021-12-09 09:05] LABS: ALKALINE PHOSPHATASE 120 U/L (45-117)
[2021-12-09 09:06] LABS: ACETAMINOPHEN (TYLENOL) < 5.0 ug/ml (10-30)
[2021-12-09 09:24] LABS: BILIRUBIN Negative (Negative); BLOOD Negative (Negative); CLARITY Clear (Clear); COLOR Yellow (Yellow); GLUCOSE Negative (Negative); KETONE Negative (Negative); LEUKO ESTERASE Trace (Negative); NITRITE Negative (Negative)
[2021-12-09 09:33] LABS: URINE AMPHETAMINES < 1000 (1000ng/ml); URINE BARBITURATES < 200 (200ng/ml); URINE BENZODIAZEPINES < 200 (200ng/ml); URINE CANNABINOIDS (THC) > 50 (50ng/ml); URINE COCAINE < 300 (300ng/ml); URINE METHADONE < 300 (300ng/ml); URINE OPIATES < 300 (300ng/ml)
[2021-12-09 09:38] LABS: URINE PHENCYCLIDINE < 25 (25ng/ml)
[2021-12-09 09:40] LABS: BACTERIA 1+; MUCOUS TRACE
== END 2021-12-09 16:35 | disposition home or self-care (01) ==
LOC: ED 07:12
PROVIDERS: Emergency Medicine
DX: F41.0 Panic disorder [episodic paroxysmal anxiety] (principal); Z20.822 Contact with and (suspected) exposure to COVID-19; F10.10 Alcohol abuse, uncomplicated; R45.851 Suicidal ideations; F17.200 Nicotine dependence, unspecified, uncomplicated; Z88.8 Allergy status to other drugs, medicaments and biological substances; Z79.899 Other long term (current) drug therapy; Z90.49 Acquired absence of other specified parts of digestive tract; Z98.890 Other specified postprocedural states; Z98.51 Tubal ligation status; Y90.5 Blood alcohol level of 100-119 mg/100 ml

== ENCOUNTER → 2022-03-03 | Outpatient (CLI) | payer OTHER ==
[2022-03-03 14:13] LABS: BASO # 0.1 10*3/uL (0.0-0.1); BASO % 0.7 % (0.0-1.0); EOS # 0.2 10*3/uL (0.0-0.4); EOS % 2.4 % (1.0-4.0); HEMATOCRIT 41.3 % (37.0-47.0); LYMPH # 2.7 10*3/uL (1.3-4.4); LYMPH % 36.3 % (27.0-41.0); MEAN CELL VOLUME 89.6 fl (81.0-99.0); MEAN CORPUSCULAR HGB 29.5 pg (27.0-31.0); MEAN CORPUSCULAR HGB CONC 32.9 g/dl (33.0-37.0); MEAN PLATELET VOLUME 8.5 fl (9.6-12.3); MONO # 0.3 10*3/uL (0.1-1.0); MONO % 4.4 % (3.0-9.0); NEUT # 4.2 10*3/uL (2.3-7.9); NEUT % 55.9 % (47.0-73.0); PLATELET COUNT AUTOMATED 306 10*3/uL (130-400); RED BLOOD COUNT 4.61 10*6/uL (4.10-5.10); RED CELL DISTRI WIDTH 14.6 % (0-14.5); WHITE BLOOD COUNT 7.5 10*3/uL (4.8-10.8)
[2022-03-03 14:26] LABS: BILIRUBIN Negative (Negative); BLOOD Negative (Negative); CLARITY Clear (Clear); COLOR Yellow (Yellow); GLUCOSE Negative (Negative); KETONE Trace (Negative); LEUKO ESTERASE 1+ (Negative); NITRITE Negative (Negative); PH 5.5 (4.5-8.0)
[2022-03-03 14:31] LABS: ACT PARTIAL THROMBO TIME 28.3 SECONDS (20.0-32.1)
[2022-03-03 14:40] LABS: ALKALINE PHOSPHATASE 108 U/L (45-117); BUN 10 mg/dl (7-24); CHLORIDE 102 mmol/L (98-107); CREATININE 0.67 mg/dL (0.55-1.02); SGPT/ALT 19 U/L (12-78); SODIUM 133 mmol/L (136-145)
[2022-03-03 16:14] LABS: RBC 0-2 rbc/hpf (0-2)
== END | disposition home or self-care (01) ==
LOC: LAB 13:19
PROVIDERS: ATTEND Orthopaedic Surgery
DX: Z01.818 Encounter for other preprocedural examination (principal); D68.8 Other specified coagulation defects; Z79.899 Other long term (current) drug therapy

== ENCOUNTER 2023-07-03 16:07 | Emergency (ER) | payer OTHER ==
[~2023-07-03] VITALS: Ht 157.4 cm; Wt 64.4 kg
[2023-07-03] MEDS ORDERED: Albuterol Sulfate 2.5 MG/3 ML VIAL NEB ONE (16:20)
[2023-07-03 16:39] LABS: BASO # 0.1 10*3/uL (0.0-0.1); BASO % 0.7 % (0.0-1.0); EOS # 0.1 10*3/uL (0.0-0.4); EOS % 1.4 % (1.0-4.0); HEMATOCRIT 44.4 % (37.0-47.0); LYMPH # 3.7 10*3/uL (1.3-4.4); LYMPH % 41.1 % (27.0-41.0); MEAN CELL VOLUME 86.7 fl (81.0-99.0); MEAN CORPUSCULAR HGB 29.3 pg (27.0-31.0); MEAN CORPUSCULAR HGB CONC 33.8 g/dl (33.0-37.0); MEAN PLATELET VOLUME 8.1 fl (9.6-12.3); MONO # 0.4 10*3/uL (0.1-1.0); MONO % 4.5 % (3.0-9.0); NEUT # 4.7 10*3/uL (2.3-7.9); NEUT % 52.1 % (47.0-73.0); PLATELET COUNT AUTOMATED 294 10*3/uL (130-400); RED BLOOD COUNT 5.12 10*6/uL (4.10-5.10); RED CELL DISTRI WIDTH 13.2 % (0-14.5)
[2023-07-03 17:06] LABS: ALKALINE PHOSPHATASE 122 U/L (46-116); BUN 9 mg/dl (9-23); CHLORIDE 101 mmol/L (98-107); POTASSIUM 2.8 mmol/L (3.4-5.1); SGPT/ALT 17 U/L (5-49); TOTAL PROTEIN 8.4 gm/dL (6.0-8.0)
[2023-07-03 17:18] LABS: BILIRUBIN Negative (Negative); BLOOD Negative (Negative); CLARITY Clear (Clear); COLOR Yellow (Yellow); GLUCOSE Negative (Negative); KETONE Negative (Negative); LEUKO ESTERASE 1+ (Negative); NITRITE Negative (Negative); PH 6.5 (4.5-8.0); SPECIFIC GRAVITY <= 1.005 (1.001-1.030); UROBILINOGEN 0.2 E.U./dl (0.0-1.0)
[2023-07-03 17:22] LABS: BACTERIA 3+; EPITHELIAL CELLS 0-2
[2023-07-03 17:26] LABS: URINE AMPHETAMINES Negative (1000ng/ml); URINE BARBITURATES Negative (200ng/ml); URINE BENZODIAZEPINES Negative (200ng/ml); URINE CANNABINOIDS (THC) Negative (50ng/ml); URINE COCAINE Negative (300ng/ml); URINE METHADONE Negative (300ng/ml); URINE OPIATES Negative (300ng/ml); URINE PHENCYCLIDINE Negative (25ng/ml)
[2023-07-03] MEDS ORDERED: POTASSIUM CHLORIDE 20 MEQ TAB PO ONE (17:30)
[2023-07-03 17:37] VITALS: BP 142/90
[2023-07-03] MEDS ORDERED: PROVENTIL HFA6.7 GM INH (17:42)
[2023-07-03] MEDS ORDERED: EFFER-K20 MEQ PO (17:42)
[2023-07-03] MEDS ORDERED: Nystatin Cream15 GM T (17:42)
[2023-07-03] MEDS ORDERED: AVPAK AZITHROM250 M1 PO (17:42)
== END 2023-07-03 18:10 | disposition home or self-care (01) ==
LOC: ED 16:07
PROVIDERS: Emergency Medicine
DX: E87.6 Hypokalemia (principal); Z20.822 Contact with and (suspected) exposure to COVID-19; J40 Bronchitis, not specified as acute or chronic; F25.9 Schizoaffective disorder, unspecified; F32.A Depression, unspecified; F41.9 Anxiety disorder, unspecified; F17.200 Nicotine dependence, unspecified, uncomplicated; Z88.8 Allergy status to other drugs, medicaments and biological substances; Z79.899 Other long term (current) drug therapy; Z90.49 Acquired absence of other specified parts of digestive tract; Z98.890 Other specified postprocedural states; Z98.51 Tubal ligation status

== ENCOUNTER 2023-07-08 18:55 | Emergency (ER) | payer OTHER ==
[~2023-07-08] VITALS: Ht 157.4 cm; Wt 61.2 kg
[~2023-07-08 18:55] MED LIST changes: +AVPAK AZITHROM250 M1 PO; +EFFER-K20 MEQ PO; +Nystatin Cream15 GM T
[2023-07-08 19:01] VITALS: BP 153/92
[2023-07-08] MEDS ORDERED: Ondansetron Hydrochloride 4 MG TAB SL ONE (19:10)
[2023-07-08 19:22] LABS: BASO # 0.1 10*3/uL (0.0-0.1); BASO % 0.7 % (0.0-1.0); EOS % 0.4 % (1.0-4.0); LYMPH # 2.9 10*3/uL (1.3-4.4); LYMPH % 33.8 % (27.0-41.0); MEAN CELL VOLUME 86.9 fl (81.0-99.0); MEAN CORPUSCULAR HGB 29.4 pg (27.0-31.0); MEAN CORPUSCULAR HGB CONC 33.9 g/dl (33.0-37.0); MEAN PLATELET VOLUME 8.1 fl (9.6-12.3); MONO # 0.3 10*3/uL (0.1-1.0); NEUT # 5.3 10*3/uL (2.3-7.9); PLATELET COUNT AUTOMATED 259 10*3/uL (130-400); RED BLOOD COUNT 4.72 10*6/uL (4.10-5.10); RED CELL DISTRI WIDTH 13.2 % (0-14.5); WHITE BLOOD COUNT 8.6 10*3/uL (4.8-10.8)
[2023-07-08 19:39] LABS: ALKALINE PHOSPHATASE 110 U/L (46-116); BUN 5 mg/dl (9-23); CHLORIDE 103 mmol/L (98-107); LIPASE 34 U/L (12-53); POTASSIUM 2.6 mmol/L (3.4-5.1); SGPT/ALT 12 U/L (5-49)
[2023-07-08] MEDS ORDERED: ONDANSETRON4 MG SL (21:26)
[2023-07-08] MEDS ORDERED: POTASSIUM CHLORIDE 20 MEQ TAB PO ONE (21:30)
== END 2023-07-08 21:30 | disposition home or self-care (01) ==
LOC: ED 18:55
PROVIDERS: Internal Medicine
DX: R11.2 Nausea with vomiting, unspecified (principal); R19.7 Diarrhea, unspecified; F17.200 Nicotine dependence, unspecified, uncomplicated; Z88.8 Allergy status to other drugs, medicaments and biological substances; Z79.899 Other long term (current) drug therapy; Z79.2 Long term (current) use of antibiotics; Z90.49 Acquired absence of other specified parts of digestive tract; Z98.890 Other specified postprocedural states; Z98.51 Tubal ligation status

== ENCOUNTER 2023-07-15 21:57 | Emergency (ER) | payer OTHER ==
[~2023-07-15] VITALS: Ht 165.1 cm; Wt 72.6 kg
[~2023-07-15 21:57] MED LIST changes: +ONDANSETRON4 MG SL
[2023-07-15 22:22] LABS: BASO # 0.1 10*3/uL (0.0-0.1); BASO % 0.9 % (0.0-1.0); EOS % 0.4 % (1.0-4.0); HEMATOCRIT 44.8 % (37.0-47.0); LYMPH # 3.6 10*3/uL (1.3-4.4); MEAN CORPUSCULAR HGB 29.7 pg (27.0-31.0); MEAN CORPUSCULAR HGB CONC 33.7 g/dl (33.0-37.0); MEAN PLATELET VOLUME 7.6 fl (9.6-12.3); MONO # 0.4 10*3/uL (0.1-1.0); MONO % 4.9 % (3.0-9.0); NEUT % 49.4 % (47.0-73.0); PLATELET COUNT AUTOMATED 230 10*3/uL (130-400); RED BLOOD COUNT 5.09 10*6/uL (4.10-5.10); RED CELL DISTRI WIDTH 13.7 % (0-14.5); WHITE BLOOD COUNT 8.1 10*3/uL (4.8-10.8)
[2023-07-15 22:52] LABS: ALKALINE PHOSPHATASE 109 U/L (46-116); BUN 11 mg/dl (9-23); CHLORIDE 104 mmol/L (98-107); POTASSIUM 3.3 mmol/L (3.4-5.1); SGPT/ALT 19 U/L (5-49); TOTAL PROTEIN 8.1 gm/dL (6.0-8.0)
[2023-07-15 22:53] LABS: ETHYL ALCOHOL 366.9 mg/dl (<3)
[2023-07-16 04:27] LABS: BILIRUBIN Negative (Negative); CLARITY Cloudy (Clear); COLOR Yellow (Yellow); GLUCOSE Negative (Negative)
[2023-07-16 04:28] LABS: BLOOD Trace-Lysed (Negative); KETONE 1+ (Negative); LEUKO ESTERASE Negative (Negative); NITRITE Positive (Negative); UROBILINOGEN 0.2 E.U./dl (0.0-1.0)
[2023-07-16 04:33] LABS: BACTERIA 4+; EPITHELIAL CELLS 31-40
[2023-07-16 04:34] LABS: URINE AMPHETAMINES Negative (1000ng/ml); URINE BARBITURATES Negative (200ng/ml); URINE BENZODIAZEPINES Positive (200ng/ml); URINE CANNABINOIDS (THC) Positive (50ng/ml); URINE COCAINE Negative (300ng/ml); URINE METHADONE Negative (300ng/ml); URINE OPIATES Negative (300ng/ml); URINE PHENCYCLIDINE Negative (25ng/ml)
[2023-07-16] MEDS ORDERED: POTASSIUM CHLORIDE 20 MEQ TAB PO ONE ×2 (06:50→12:05)
[2023-07-16] MEDS ORDERED: DIAZEPAM 5 MG TAB PO ONE (07:55)
[2023-07-16] MEDS ORDERED: hydrOXYzine hydrochloride 50 MG/ML VIAL IM ONE (09:25)
[2023-07-16 11:01] VITALS: BP 164/93
[2023-07-16] MEDS ORDERED: CIPRO500 MG PO (11:59)
[2023-07-16] MEDS ORDERED: Ciprofloxacin Hydrochloride 500 MG TAB PO ONE (12:00)
== END 2023-07-16 12:10 | disposition home or self-care (01) ==
LOC: ED 21:57
PROVIDERS: Internal Medicine
DX: N39.0 Urinary tract infection, site not specified (principal); F10.129 Alcohol abuse with intoxication, unspecified; F41.9 Anxiety disorder, unspecified; F32.A Depression, unspecified; E87.6 Hypokalemia; Z88.8 Allergy status to other drugs, medicaments and biological substances; Z90.49 Acquired absence of other specified parts of digestive tract; Z98.51 Tubal ligation status; Z98.890 Other specified postprocedural states; F10.10 Alcohol abuse, uncomplicated; Z59.00 Homelessness unspecified; F12.90 Cannabis use, unspecified, uncomplicated; F17.200 Nicotine dependence, unspecified, uncomplicated; Y90.8 Blood alcohol level of 240 mg/100 ml or more

== ENCOUNTER 2023-07-21 15:54 | Emergency (ER) | payer OTHER ==
[~2023-07-21] VITALS: Ht 157.4 cm; Wt 72.6 kg
[2023-07-21 16:02] VITALS: BP 149/93
[2023-07-21 16:15] LABS: BASO % 0.2 % (0.0-1.0); EOS % 0.2 % (1.0-4.0); HEMATOCRIT 42.4 % (37.0-47.0); LYMPH % 10.5 % (27.0-41.0); MEAN CELL VOLUME 87.8 fl (81.0-99.0); MEAN CORPUSCULAR HGB CONC 34.2 g/dl (33.0-37.0); MEAN PLATELET VOLUME 8.6 fl (9.6-12.3); MONO # 0.4 10*3/uL (0.1-1.0); MONO % 4.3 % (3.0-9.0); NEUT # 7.9 10*3/uL (2.3-7.9); NEUT % 84.5 % (47.0-73.0); PLATELET COUNT AUTOMATED 151 10*3/uL (130-400); RED BLOOD COUNT 4.83 10*6/uL (4.10-5.10); RED CELL DISTRI WIDTH 13.8 % (0-14.5); WHITE BLOOD COUNT 9.3 10*3/uL (4.8-10.8)
[2023-07-21 16:37] LABS: ALKALINE PHOSPHATASE 96 U/L (46-116); BUN 14 mg/dl (9-23); CHLORIDE 99 mmol/L (98-107); ETHYL ALCOHOL < 3.0 mg/dl (<3); LIPASE 42 U/L (12-53); POTASSIUM 3.4 mmol/L (3.4-5.1); SGPT/ALT 48 U/L (5-49); TOTAL PROTEIN 8.1 gm/dL (6.0-8.0)
[2023-07-21 17:06] LABS: BILIRUBIN Negative (Negative); BLOOD 1+ (Negative); CLARITY Clear (Clear); COLOR Yellow (Yellow); GLUCOSE Negative (Negative); KETONE Negative (Negative); LEUKO ESTERASE Trace (Negative); NITRITE Negative (Negative); PH 5.5 (4.5-8.0); SPECIFIC GRAVITY 1.015 (1.001-1.030); UROBILINOGEN 0.2 E.U./dl (0.0-1.0)
[2023-07-21 17:12] LABS: URINE AMPHETAMINES Negative (1000ng/ml); URINE BARBITURATES Negative (200ng/ml); URINE BENZODIAZEPINES Positive (200ng/ml); URINE CANNABINOIDS (THC) Negative (50ng/ml); URINE COCAINE Negative (300ng/ml); URINE METHADONE Negative (300ng/ml); URINE OPIATES Negative (300ng/ml); URINE PHENCYCLIDINE Negative (25ng/ml)
[2023-07-21 17:16] LABS: BACTERIA 1+
[2023-07-21] MEDS ORDERED: hydrOXYzine pamoate 25 MG CAP PO ONE (18:00)
[2023-07-21] MEDS ORDERED: VISTARIL25 M2 PO (18:19)
[2023-07-21] MEDS ORDERED: CIPRO500 MG PO (18:19)
== END 2023-07-21 18:45 | disposition home or self-care (01) ==
LOC: ED 15:54
PROVIDERS: Internal Medicine
DX: F41.9 Anxiety disorder, unspecified (principal); N39.0 Urinary tract infection, site not specified; F17.200 Nicotine dependence, unspecified, uncomplicated; Z88.8 Allergy status to other drugs, medicaments and biological substances; Z79.899 Other long term (current) drug therapy; Z79.2 Long term (current) use of antibiotics; Z90.49 Acquired absence of other specified parts of digestive tract; Z98.890 Other specified postprocedural states; Z98.51 Tubal ligation status

== ENCOUNTER 2023-07-30 15:02 | Emergency (ER) | payer OTHER ==
[~2023-07-30 15:02] MED LIST changes: +VISTARIL25 M2 PO
[2023-08-01] MEDS ORDERED: DULOXETINE HCL60 MG PO (16:11)
[2023-08-01] MEDS ORDERED: CLONAZEPAM1 MG PO (16:11)
[2023-08-01] MEDS ORDERED: HYDROXYZINE PAM25 M1 PO (16:12)
[2023-08-01] MEDS ORDERED: ROPINIROLE HYD0.5 MG PO (16:13)
[2023-08-01] MEDS ORDERED: OMEPRAZOLE MAGN20 MG PO (16:14)
[2023-08-01] MEDS ORDERED: ALBUTEROL INH (16:18)
[2023-08-01] MEDS ORDERED: ROSUVASTATIN CA10 MG PO (17:18)
== END 2023-07-30 15:56 | disposition left against medical advice (07) ==
LOC: ED 15:02
DX: Z00.01 Encounter for general adult medical examination with abnormal findings (principal); Z53.21 Procedure and treatment not carried out due to patient leaving prior to being seen by health care provider

== ENCOUNTER 2023-08-18 14:37 | Emergency (ER) | payer OTHER ==
[~2023-08-18] VITALS: Ht 157.4 cm; Wt 68.0 kg
[~2023-08-18 14:37] MED LIST changes: +ALBUTEROL INH; +CLONAZEPAM1 MG PO; +DULOXETINE HCL60 MG PO; +HYDROXYZINE PAM25 M1 PO; +OMEPRAZOLE MAGN20 MG PO; +ROPINIROLE HYD0.5 MG PO; +ROSUVASTATIN CA10 MG PO
[2023-08-18 15:07] VITALS: BP 141/83
[2023-08-18] MEDS ORDERED: PREDNISONE50 MG PO (16:02)
[2023-08-18] MEDS ORDERED: ZITHROMAX250 MG PO (16:02)
== END 2023-08-18 16:12 | disposition home or self-care (01) ==
LOC: ED 14:37
DX: J40 Bronchitis, not specified as acute or chronic (principal); J44.9 Chronic obstructive pulmonary disease, unspecified; F17.210 Nicotine dependence, cigarettes, uncomplicated; Z88.8 Allergy status to other drugs, medicaments and biological substances; Z90.49 Acquired absence of other specified parts of digestive tract; Z98.51 Tubal ligation status; Z98.890 Other specified postprocedural states

== ENCOUNTER 2023-10-16 13:24 | Emergency (ER) | payer OTHER ==
[~2023-10-16] VITALS: Ht 167.6 cm; Wt 90.7 kg
[~2023-10-16 13:24] MED LIST changes: +ZITHROMAX250 MG PO
[2023-10-16 13:30] VITALS: BP 116/50
[2023-10-16] MEDS ORDERED: Naloxone Hydrochloride 2 MG/2 ML SYR NAS ONE ×2 (13:40→13:55)
== END 2023-10-16 14:12 | disposition left against medical advice (07) ==
LOC: ED 13:24
DX: R53.83 Other fatigue (principal); Z53.29 Procedure and treatment not carried out because of patient's decision for other reasons; F41.9 Anxiety disorder, unspecified; F32.A Depression, unspecified; E87.6 Hypokalemia; F10.10 Alcohol abuse, uncomplicated; F12.90 Cannabis use, unspecified, uncomplicated; F17.200 Nicotine dependence, unspecified, uncomplicated; Z88.6 Allergy status to analgesic agent; Z90.49 Acquired absence of other specified parts of digestive tract; Z98.890 Other specified postprocedural states; Z98.51 Tubal ligation status

== ENCOUNTER → 2023-10-26 | Outpatient (CLI) | payer OTHER ==
[2023-10-26 13:36] LABS: HEMATOCRIT 38.4 % (37.0-47.0); MEAN CORPUSCULAR HGB CONC 32.3 g/dl (33.0-37.0); MEAN PLATELET VOLUME 8.3 fl (9.6-12.3); RED BLOOD COUNT 4.13 10*6/uL (4.10-5.10); RED CELL DISTRI WIDTH 14.1 % (0-14.5)
[2023-10-26 14:00] LABS: ALKALINE PHOSPHATASE 81 U/L (46-116); BUN 11 mg/dl (9-23); CHLORIDE 109 mmol/L (98-107); CHOLESTEROL 198 mg/dL (<200); CPK 139 U/L (34-171); POTASSIUM 3.3 mmol/L (3.4-5.1); SGPT/ALT < 7 U/L (5-49); TRIGLYCERIDES 500 mg/dl (<150)
[2023-10-26 14:29] LABS: VITAMIN D, 25-HYDROXY 22.8 ng/mL (30-100)
== END | disposition home or self-care (01) ==
LOC: LAB 13:12
PROVIDERS: ATTEND Family Medicine
DX: E78.00 Pure hypercholesterolemia, unspecified (principal); K21.9 Gastro-esophageal reflux disease without esophagitis; E74.9 Disorder of carbohydrate metabolism, unspecified; R53.83 Other fatigue; E55.9 Vitamin D deficiency, unspecified

== ENCOUNTER → 2023-11-06 | Outpatient (CLI) | payer OTHER ==
[2023-11-06 12:33] LABS: HEMATOCRIT 41.1 % (37.0-47.0); MEAN CORPUSCULAR HGB 29.7 pg (27.0-31.0); MEAN CORPUSCULAR HGB CONC 33.3 g/dl (33.0-37.0); MEAN PLATELET VOLUME 8.2 fl (9.6-12.3); RED BLOOD COUNT 4.62 10*6/uL (4.10-5.10); RED CELL DISTRI WIDTH 14.4 % (0-14.5); WHITE BLOOD COUNT 6.3 10*3/uL (4.8-10.8)
[2023-11-06 13:03] LABS: ALKALINE PHOSPHATASE 100 U/L (46-116); BUN 11 mg/dl (9-23); CHLORIDE 101 mmol/L (98-107); CHOLESTEROL 235 mg/dL (<200); LDL CHOLESTEROL 161 mg/dL (9-159); TOTAL PROTEIN 7.9 gm/dL (6.0-8.0); TRIGLYCERIDES 147 mg/dl (<150)
[2023-11-06 13:07] LABS: SGPT/ALT < 7 U/L (5-49)
== END | disposition home or self-care (01) ==
LOC: LAB 12:09
PROVIDERS: ATTEND Family Medicine
DX: R53.83 Other fatigue (principal); K21.9 Gastro-esophageal reflux disease without esophagitis; E78.00 Pure hypercholesterolemia, unspecified; K13.70 Unspecified lesions of oral mucosa

== ENCOUNTER → 2024-06-08 | Outpatient (CLI) | payer MEDICARE ==
[2024-06-08 12:46] LABS: HEMATOCRIT 44.7 % (37.0-47.0); MEAN CELL VOLUME 84.7 fl (81.0-99.0); MEAN CORPUSCULAR HGB 29.2 pg (27.0-31.0); MEAN CORPUSCULAR HGB CONC 34.5 g/dl (33.0-37.0); MEAN PLATELET VOLUME 8.3 fl (9.6-12.3); RED BLOOD COUNT 5.28 10*6/uL (4.10-5.10); RED CELL DISTRI WIDTH 13.2 % (0-14.5); WHITE BLOOD COUNT 7.8 10*3/uL (4.8-10.8)
[2024-06-08 13:24] LABS: ALKALINE PHOSPHATASE 101 U/L (46-116); BUN 9 mg/dl (9-23); CHLORIDE 100 mmol/L (98-107); CHOLESTEROL 214 mg/dL (<200); CPK 81 U/L (34-171); FREE T4 1.13 ng/dl (0.89-1.76); LDL CHOLESTEROL 144 mg/dL (9-159); POTASSIUM 2.7 mmol/L (3.4-5.1); SGPT/ALT 15 U/L (5-49); TOTAL PROTEIN 8.4 gm/dL (6.0-8.0); TRIGLYCERIDES 141 mg/dl (<150)
[2024-06-08 13:31] LABS: VITAMIN D, 25-HYDROXY 17.8 ng/mL (30-100)
== END | disposition home or self-care (01) ==
LOC: LAB 12:21
PROVIDERS: ATTEND Family Medicine
DX: E55.9 Vitamin D deficiency, unspecified (principal); E78.00 Pure hypercholesterolemia, unspecified; M79.18 Myalgia, other site; M25.50 Pain in unspecified joint; R25.2 Cramp and spasm; M79.606 Pain in leg, unspecified

== ENCOUNTER → 2024-07-08 | Outpatient (CLI) | payer OTHER | END | disposition home or self-care (01) | LOC: CT 01:57 | PROVIDERS: ATTEND Surgery | DX: R10.9 Unspecified abdominal pain (principal); J98.11 Atelectasis; Z90.49 Acquired absence of other specified parts of digestive tract ==

== ENCOUNTER 2024-09-06 15:23 | Emergency (ER) | payer OTHER ==
[~2024-09-06] VITALS: Ht 157.4 cm; Wt 68.0 kg
[2024-09-06 15:34] VITALS: BP 148/80
[2024-09-06 15:57] LABS: BASO % 0.7 % (0.0-1.0); EOS # 0.1 10*3/uL (0.0-0.4); EOS % 0.9 % (1.0-4.0); HEMATOCRIT 40.2 % (37.0-47.0); MEAN CELL VOLUME 88.9 fl (81.0-99.0); MEAN CORPUSCULAR HGB 30.1 pg (27.0-31.0); MEAN CORPUSCULAR HGB CONC 33.8 g/dl (33.0-37.0); MEAN PLATELET VOLUME 7.9 fl (9.6-12.3); MONO # 0.2 10*3/uL (0.1-1.0); MONO % 4.2 % (3.0-9.0); NEUT # 2.1 10*3/uL (2.3-7.9); NEUT % 36.2 % (47.0-73.0); PLATELET COUNT AUTOMATED 299 10*3/uL (130-400); RED BLOOD COUNT 4.52 10*6/uL (4.10-5.10); RED CELL DISTRI WIDTH 13.5 % (0-14.5); WHITE BLOOD COUNT 5.7 10*3/uL (4.8-10.8)
[2024-09-06 16:26] LABS: ALKALINE PHOSPHATASE 99 U/L (46-116); BUN 14 mg/dl (9-23); CHLORIDE 111 mmol/L (98-107); ETHYL ALCOHOL 230.8 mg/dl (<3); LIPASE 34 U/L (12-53); POTASSIUM 3.3 mmol/L (3.4-5.1); SGPT/ALT 13 U/L (5-49); TOTAL PROTEIN 7.1 gm/dL (6.0-8.0)
[2024-09-06 16:51] LABS: URINE AMPHETAMINES Negative (1000ng/ml); URINE BARBITURATES Negative (200ng/ml); URINE BENZODIAZEPINES Positive (200ng/ml); URINE CANNABINOIDS (THC) Positive (50ng/ml); URINE COCAINE Negative (300ng/ml); URINE METHADONE Negative (300ng/ml); URINE OPIATES Negative (300ng/ml); URINE PHENCYCLIDINE Negative (25ng/ml)
[2024-09-06] MEDS ORDERED: POTASSIUM CHLORIDE 20 MEQ TAB PO ONE (18:25)
[2024-09-06] MEDS ORDERED: MULTIVITAMIN 1 TAB TAB PO ONE (18:25)
[2024-09-06] MEDS ORDERED: Thiamine 200 MG/2 ML VIAL IV ONE (18:25)
[2024-09-06] MEDS ORDERED: MAGNESIUM SULFATE 100 ML IV ONE (18:25)
[2024-09-06] MEDS ORDERED: FOLIC ACID 1 MG TAB PO ONE (18:25)
== END 2024-09-06 22:45 | disposition left against medical advice (07) ==
LOC: ED 15:23
PROVIDERS: Internal Medicine
DX: F10.129 Alcohol abuse with intoxication, unspecified (principal); E87.20 Acidosis, unspecified; E87.8 Other disorders of electrolyte and fluid balance, not elsewhere classified; F32.A Depression, unspecified; F41.9 Anxiety disorder, unspecified; Z79.899 Other long term (current) drug therapy; Z88.8 Allergy status to other drugs, medicaments and biological substances; Z90.49 Acquired absence of other specified parts of digestive tract; Z98.51 Tubal ligation status; Z98.890 Other specified postprocedural states; Y90.7 Blood alcohol level of 200-239 mg/100 ml